=== PATIENT | male | born 1985 | race Caucasian/White ===

== ENCOUNTER → 2018-01-18 10:39 | Outpatient (CLI) | payer SELFPAY ==
[2018-01-18 13:36] LABS: Absolute Lymphocyte Count 1.93 X10^3/ul (0.83-4.51); Absolute Neutrophil Count 6.7 X10^3/uL (2.0-7.7); Basophil# 0.02 X10^3/uL; Basophil% 0.2 % (0-1); Eosinophil# 0.17 X10^3/uL; Eosinophils% 1.8 % (0-5); Hematocrit 42.6 % (40-54); Hemoglobin 13.9 g/dl (13.0-16.5); Lymphocyte # 1.93 X10^3/ul (4.0); Lymphocyte % 20.4 % (19-41); Mean Corp Hgb Conc 32.6 g/gl (32-36); Mean Corpuscular Volume 88.8 fL (80-94); Mean Platelet Vol. 11.2 fl (6.2-12.0); Monocyte# 0.59 X10^3/uL; Monocyte% 6.2 % (0-10); Neutrophil # 6.72 X10^3/uL (2.7-7.7); Neutrophil % 71.2 % (47-70); POSITIVE COUNT NO; POSITIVE DIFFERENTIAL NO; POSITIVE MORPHOLOGY NO; Platelet Count 261 K/mm3 (150-450); RBC Distribution Width CV 13.2 % (11.6-14.6); RBC Distribution Width SD 42.7 fl (35.1-43.9); White Blood Count 9.5 K/mm3 (4.4-11.0)
[2018-01-18 13:40] LABS: Partial Thromboplast Time 25.8 Seconds (24.1-36.2); Prothrombin Time (Protime)PT. 13.5 SECONDS (11.7-14.9)
[2018-01-18 13:47] LABS: ALB/GLOB Ratio 0.9 RATIO (0.9-2.4); AST(SGOT) 25 U/L (15-37); Alanine Aminotransfer ALT/SGPT 54 U/L (16-61); Albumin, Serum 3.8 g/dL (3.2-5.0); Alkaline Phosphatase 88 U/L (45-117); Anion Gap 8 (5-15); BUN 13 mg/dL (7-18); BUN/Creat Ratio 15.1 RATIO (10-20); Calcium,Total 8.3 mg/dL (8.5-10.1); Chloride 105 mmol/L (98-107); Creatinine, Serum 0.86 mg/dL (0.70-1.30); EST Glomerular Filtration Rate 108 mL/min (>60); Est Glom Filt Rate - Afr Amer 131 mL/min (>60); Globulin 4.1 g/dL (2.2-4.2); Glucose 209 mg/dL (74-106); Protein, Total 7.9 g/dL (6.4-8.2); Sodium Level 138 mmol/L (136-145)
== END ==
LOC: LABSPEC 12:42
PROVIDERS: Family Provider Nurse Practitioner; PCP Nurse Practitioner; Referring Provider Registered Nurse; Visit Provider Registered Nurse
DX: K92.1 Melena (principal)
CPT/HCPCS: 80053; 85025; 85610; 85730

== ENCOUNTER 2018-02-12 12:23 | Emergency (ER) | payer OTHER, SELFPAY ==
[2018-02-12 12:23] VITALS: BP 153/88; PULSE 87; RESP 16; TEMP 36.5; O2SAT 98; BMI 48.8
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
--- OUTSIDE RECORDS SUMMARY | 2018-03-27 06:32 | XMS RPT_ITS ---
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 COLONOSCOPY - DIAGNOSTIC [[id number]] Order #: [id number] [facility] MORENA PT ED DIGESTIVE DISEASES [] Order #: [id number]. #:[id number]: [id number] Prescriptions as of 01/24/2018 Sig: PEG 3350-ELECTROLYTES 236 GRA* Take 4,000 mL by mouth one ti* GLIMEPIRIDE 2 MG TABLET Take 1 tablet by mouth daily * METFORMIN ER 500 MG TABLET,EX* Take 2 tablets by mouth twice* CPAP Initiate Auto PAP @ 10- 20 cm * DULERA 100 MCG-5 MCG/ACTUATIO* Inhale 2 Puffs as instructed * ATORVASTATIN 80 MG TABLET Take 1 tablet by mouth daily * ALBUTEROL SULFATE HFA 90 MCG/* Inhale 2 Puffs as instructed * BLOOD-GLUCOSE METER KIT Glucose Meter of Choice - Kit* BLOOD SUGAR DIAGNOSTIC STRIPS Test blood sugar(s) 1- 2 times* LANCETS Test blood sugar(s) 1- 2 times* LISINOPRIL 5 MG TABLET Take 1 tablet by mouth once d* COMPOUNDED PRESCRIPTION Referral to [facility] for* Problem List As Of Date 01/24/2018 Noted Resolved Asthma [J45.909] INVALID FOR* More... Allergic rhinitis [J30.9] INVALID FOR* More... Environmental and seasonal allergies [J30.89] Obesity, Class III, BMI >= 40 (morbid obesity) *INVALID FOR* Diabetes mellitus, type II (HCC) [E11.9] Hyperlipidemia [E78.5] ARACELI (obstructive sleep apnea) [G47.33] More... Other instructions from your clinician: How to Prepare for Your Colonoscopy Using Golytely, Nulytely, Trilyte or Colyte Preparations with Conscious Sedation IMPORTANT - Read These Instructions at Least 2 Weeks Before your Colonoscopy Roy Instructions: ? Your bowel must be empty so that your doctor can clearly view your colon. Follow all of the instructions in this handout EXACTLY as they are written. If you do NOT follow the directions for when to start drinking the bowel preparation, your colonoscopy WILL be cancelled. ? Do NOT eat any solid food the ENTIRE day before your colonoscopy. ? Buy your bowel preparation at least 5 days before your colonoscopy. ? Do NOT mix the solution until the day before your colonoscopy. Designated Relay Tester Helper on the Day of Your Exam A responsible family member or friend MUST come with you to your colonoscopy and REMAIN in the endoscopy area until you are discharged. You are NOT ALLOWED to drive, take a taxi or bus, or leave the Endoscopy Center ALONE. If you do not have a responsible stud driver (family member or friend) with you to take you home, you exam cannot be done with sedation and will be cancelled. Medications Some of the medications you take may need to be stopped or adjusted before your colonoscopy. You MUST call the doctor who ordered any of the following medicines at least 2 weeks before your colonoscopy. ? Blood thinners - such as Coumadin (warfarin), Plavix (clopidogrel), Ticlid (ticlopidine hydrochloride), Agrylin (anagrelide), Xarelto (Rivaroxaban), Pradaxa (Dabigatran), Eliquis (Apixaban), and Effient (Prasugrel). ? Insulin or diabetes pills. Please call the doctor that monitors your glucose levels. Your insulin dosage may need to be adjusted due to the diet restrictions required with this bowel preparation. (Please bring your diabetes medicines with you on the day of your procedure.) If you take aspirin, take it and ALL other medications prescribed by your doctor. On the day of your colonoscopy, take your medications with a sip of water. Five (5) Days Before Your Colonoscopy ? Do NOT take medicines that stop diarrhea - such as Imodium, Kaopectate, or Pepto Bismol. ? Do NOT take fiber supplements - such as Metamucil, Citrucel, or Perdiem. ? Do NOT take products that contain iron - such as multi- vitamins (the label lists what is in the products). ? Do NOT take Vitamin E. Buy the prescription bowel preparation solution at your local pharmacy or drugstore pharmacy. Three (3) Days Before Your Colonoscopy ? Do NOT eat high-fiber foods - such as popcorn, beans, seeds (flax, sunflower, quinoa), multigrain bread, nuts, salad/vegetables, or fresh and dried fruit. One (1) Day Before Your Colonoscopy Only drink clear liquids the ENTIRE DAY before your colonoscopy. Do NOT eat any solid foods. Drink at least 8 ounces of clear liquids every hour after waking up. The clear liquids you can drink include: ? Water, apple, or white grape juice; broth; coffee or tea (without milk or creamer); clear carbonated beverages such as flori yordy or lemon-noorvik soda; Gatorade or other sports drinks (not red); Corbin- Aid or other flavored drinks (not red). You may eat plain jello or other gelatins (not red) or popsicles (not red). Do NOT drink alcohol on the day before or the day of the procedure. When to Mix and Drink Your Bowel Prep Follow the instructions on the label. After mixing, place the solution in the refrigerator for a couple of hours before drinking. You may add the flavor pack that came with the bowel preparation. Do NOT add ice, sugar or any flavorings to the solution. Morning Appointment (Before 12 noon) Step 1: ? Start drinking the bowel preparation at 6 PM the evening before your colonoscopy. Drink an 8-oz glass of bowel preparation every 10 minutes for a total of 8 glasses. ? You may continue to drink clear liquids until bedtime. Step 2: The day of the colonoscopy (4 hours before your exam). ? Drink an 8-oz glass of bowel preparation every 10 minutes for a total of 8 glasses. ? You may continue to drink clear liquids up to 2 hours before your exam. If you take aspirin, take it and ALL other prescribed medicines with a sip of water on the day of your colonoscopy. Afternoon Appointment (After 12 noon) ? Start drinking the bowel preparation at 6 AM the day of your colonoscopy. Drink an 8-oz glass of bowel preparation every 10 minutes. You must finish drinking the solution by 9 AM. ? You may continue to drink clear liquids up to 2 hours before your exam. If you take aspirin, take it and ALL other prescribed medicines with a sip of water on the day of your colonoscopy. Visit Notes: >> Adela Desai LPN Marcia Jan 24, 2018 3:25 PM Status: Signed REVIEW OF SYSTEMS: General: The patient denies fatigue, denies weight loss, denies weight gain, denies feeling hot, and denies feelings of cold. Eyes: The patient denies glaucoma, denies eye injury/surgery, wears glasses or contacts. Ear/Nose/Throat: The patient NOTES allergies, denies hayfever, denies ear infections, and denies bloody noses. Cardiovascular: The patient denies chest pain, denies heart disease, NOTES high blood pressure,denies cardiac stent, denies prior heart attack, denies irregular heart beat, NOTES high cholesterol, denies poor circulation, denies heart failure, other cardiac issues, denies claudication, denies cold feet, denies peripheral arterial stent. Respiratory: The patient denies tuberculosis, NOTES pneumonia, denies frequent cough, denies pulmonary embolism, denies shortness of breath, and denies coughing up blood. Gastrointestinal: The patient denies difficulty swallowing, denies acid reflux, denies ulcers, denies vomiting, denies jaundice/hepatitis, denies gallbladder problems, denies black or tarry stools, denies hemorrhoids, NOTES bleeding from rectum, denies diverticulitis, denies constipation, NOTES diarrhea, denies loss of stool control, and denies hernias. Kidney/Bladder: The patient denies kidney stones, denies urine infections, and denies bloody urine. Skin: The patient denies a history of skin cancer, denies bleeding/changing moles, and denies a history of skin rash. Neurologic: The patient denies a history of epilepsy/convulsions, denies headaches, denies head/spinal injuries, and denies stroke/TIA. Psychiatric: The patient denies psychiatric medications, denies depression, and denies voices, denies substance abuse. Endocrine: The patient denies thyroid disorders, NOTES diabetes, and denies hormonal problems. Hematologic: The patient denies a history of bruising, denies bleeding, and denies anemia, denies blood clots. Infections: The patient denies a history of measles and mumps, denies rheumatic fever, and denies sexually transmitted diseases. Musculoskeletal: The patient denies back pain/injury, denies back problems, denies sciatica, denies knee/foot trouble, denies arthritis, or denies gout. When was patient's last Mammogram screening? N/A Last Colonoscopy: None Adela Desai LPN Prescriptions ordered this encounter Disp Refills Start End PEG 3350-ELECTROLYTES 236 GRAM-22.74* 1 Jimmy* 0 01/24/2018 01/24/2018 Route: ORAL Sig: Take 4,000 mL by mouth one time only for 1 dose. Refer to printed prep instructions from your doctor. Letter Text Encounter Status:Closed by MD KARIME CHAWLA on 01/27/18 CNCO Observed: 01/24/2018 Status: COMPLETED Source: [place] 12:00 AM [facility] REPOSITORY Letter Text Department of General Surgery Dr Karime Chawla [address] [place] [phone] 01/24/2018 TO WHOM IT MAY CONCERN: This is to confirm that Guera Fragoso had an appointment and was seen at the [facility] in the Department of General Surgery by Dr Karime Chawla on 01/24/2018. Patient is to have a procedure on 02-06-2017 and may return to work on the next operating day. Sincerely yours, Dr Karime Chawla CBC AND DIFFERENTIAL Collected: 01/18/2018 Status: F Source: [place] 11:05 AM [facility] REPOSITORY TYPE CODE TESTS RESULT OUT OF REFERENCE UNITS RANGE LAB WBC 3.70-11.00 k/uL Test WBC sent to [facility]. Result Comment: Account Credited HIDE LAB RBC 4.20-6.00 m/uL Test sent RBC to [facility]. Result Comment: Account Credited HIDE LAB HGB 13.0-17.0 g/dL Hemoglobin Test sent to [facility]. Result Comment: Account Credited HIDE LAB HCT 39.0-51.0 % Hematocrit Test sent to [facility]. Result Comment: Account Credited HIDE LAB MCV 80.0-100.0 fL Test sent MCV to [facility]. Result Comment: Account Credited HIDE LAB MCH 26.0-34.0 pG Test sent MCH to [facility]. Result Comment: Account Credited HIDE LAB MCHC 30.5-36.0 g/dL Test MCHC sent to [facility]. Result Comment: Account Credited HIDE LAB RDWCV 11.5-15.0 % Test RDW-CV sent to [facility]. Result Comment: Account Credited HIDE LAB PLTCT 150-400 k/uL Test Platelet Count sent to [facility]. Result Comment: Account Credited HIDE LAB MPV 9.0-12.7 fL Test sent MPV to [facility]. Result Comment: Account Credited HIDE LAB SANDIE Recheck Test sent to [facility]. Result Comment: Account Credited HIDE LAB [facility]EUT [facility] Result Comment: Account Credited HIDE LAB AANEUT 1.45-7.50 k/uL Test Abs sent to [facility]. Result Comment: Account Credited HIDE LAB ALYMP % Test sent to Lymph% [facility]. Result Comment: Account Credited HIDE LAB AALYMP 1.00-4.00 k/uL Test Abs Lymph sent to [facility]. Result Comment: Account Credited HIDE LAB AMONO % Test sent to Slope% [facility]. Result Comment: Account Credited HIDE LAB AAMONO <0.87 k/uL Test sent Abs Slope to [facility]. Result Comment: Account Credited HIDE LAB AEOS % Test sent to Eosin% [facility]. Result Comment: Account Credited HIDE LAB AAEOS <0.46 k/uL Test sent Abs Eosin to [facility]. Result Comment: Account Credited HIDE LAB ABASO % Test sent to Baso% [facility]. Result Comment: Account Credited HIDE LAB AABASO <0.11 k/uL Test sent Abs Baso to [facility]. Result Comment: Account Credited HIDE LAB REVW Test sent to Review [facility]. Result Comment: Account Credited HIDE LAB CBCCOM Comment Test sent to [facility]. Result Comment: Account Credited KYMBERLYE COMP METABOLIC PANEL Collected: 01/18/2018 Status: F Source: [place] 11:05 AM [facility] RE[facility] TYPE CODE TESTS RESULT OUT OF REFERENCE UNITS RANGE LAB TP 6.3-8.0 g/dL Test sent to [facility]. Result Comment: Account Credited HIDE LAB ALB 3.9-4.9 g/dL Test Albumin sent to [facility]. Result Comment: Account Credited HIDE LAB CA 8.5-10.2 mg/dL Test Calcium, Total sent to [facility]. Result Comment: Account Credited HIDE LAB TBIL 0.2-1.3 mg/dL Bilirubin, Test Total sent to [facility]. Result Comment: Account Credited HIDE LAB ALKP 38-113 U/L Alkaline Test Phosphatase sent to [facility]. Result Comment: Account Credited HIDE LAB AST 14-40 U/L Test sent AST to [facility]. Result Comment: Account Credited HIDE LAB GLU 74-99 mg/dL Test sent Glucose to [facility]. Result Comment: Account Credited HIDE LAB BUN 9-24 mg/dL Test sent BUN to [facility]. Result Comment: Account Credited HIDE LAB CRET 0.73-1.22 mg/dL Creatinine Test sent to [facility]. Result Comment: Account Credited HIDE LAB NA 136-144 mmol/L Test Sodium sent to [facility]. Result Comment: Account Credited HIDE LAB K 3.7-5.1 mmol/L Test Potassium sent to [facility]. Result Comment: Account Credited HIDE LAB CL 97-105 mmol/L Test Chloride sent to [facility]. Result Comment: Account Credited HIDE LAB CO2 22-30 mmol/L Test sent CO2 to [facility]. Result Comment: Account Credited HIDE LAB AGAP 9-18 mmol/L Test sent Anion Gap to [facility]. Result Comment: Account Credited HIDE LAB ALT 10-54 U/L Test sent ALT to [facility]. Result Comment: Account Credited HIDE LAB GFRAA eGFR- Amer. Test sent to [facility]. Result Comment: Account Credited HIDE LAB GFRNAA . eGFR-All Test sent Other Races to [facility]. Result Comment: Account Credited HIDE LAB GFRPED eGFR-Ped. Test sent Factor to [facility]. Result Comment: Account Credited HIDE PROTIME Collected: 01/18/2018 Status: F Source: [place] 11:05 AM [facility] REPOSITORY TYPE CODE TESTS RESULT OUT OF REFERENCE UNITS RANGE LAB PSEC 9.7-13.0 sec Test PT sent to [facility]. Result Comment: Account Credited HIDE LAB INR 0.9-1.3 Test sent to PT INR [facility]. Result Comment: Account Credited HIDE APTT Collected: 01/18/2018 Status: F Source: [place] 11:05 AM [facility] REPOSITORY TYPE CODE TESTS RESULT OUT OF REFERENCE UNITS RANGE LAB APTT 23.0-32.4 sec Test APTT sent to [facility]. Result Comment: Account Credited HIDE HEMOGLOBIN A1C Collected: 01/18/2018 Status: F Source: [place] 11:05 [facility] REPOSITORY TYPE CODE TESTS RESULT OUT OF REFERENCE UNITS RANGE LAB HGBA1C 4.3-5.6 % High Hemoglobin A1c 10.7 LAB HBA0 mg/dL Est. Average Glucose 260 Result Comment: eAG: (Estimated average glucose) is a calculated value from HgbA1c and is service representative of the average blood glucose level in the last 2-3 month period. Performed By: #### HBA1C #### [facility] [address] [place] [address] PROTHROMBIN TIME W/INR Collected: 01/18/2018 Status: F Source: [place] 9:30 AM [facility] REPOSITORY TYPE CODE TESTS RESULT OUT OF RANGE REFERENCE UNITS LAB L300.4150 11.7-14.9 SECONDS Normal PROTIME 13.5 LAB L300.4200 Normal INR 1.0 Performed By: #### L300.3900, L300.4310 #### [facility] [address] [place], [address] PARTIAL THROMBOPLAST Collected: 01/18/2018 Status: F Source: [place] TIME 9:30 AM [facility] REPOSITORY TYPE CODE TESTS RESULT OUT OF RANGE REFERENCE UNITS LAB L300.4310 24.1-36.2 Seconds Normal PTT 25.8 Performed By: #### L300.3900, L300.4310 #### [facility] [address] [place], [address] PROGRESS Observed: 01/18/2018 Status: COMPLETED Source: [place] 8:59 AM [facility] REPOSITORY HNO ID: [id number] Author: Rachel Lai) Patsy Service: (none) Author Type: Nurse Practitioner Type: Progress Notes Filed: 01/18/2018 1:49 PM Note Text: This is a 32 year old male who presents today with: Patient presents with: Rectal Problem HISTORY OF PRESENT ILLNESS: Guera Fragoso is a 32 year old male. Patient presents with: Rectal Problem Pt presents today with complaint of rectal bleeding. Yesterday he was having a lot of blood in stool. He had two stools and both times, notices a lot of blood in the toilet. With the 3rd stool, blood was just with wiping. Refers that he went to urgent care last night, and was advised to follow up with gen surg today, but was unable to get in. No stooling yet today to eval. He brought a picture in of the blood in the toilet. No hx of blood in the stool. Only notes bleeding with stooling. No pain. Stool was more diarrhea-like in nature. Refers that since metformin increased, stool has been looser. Refers that he also recently started on amaryl. Sometimes will feel like stomach is rolling, but that is normal for him with the metformin. No ASA. No NSAIDs. No blood thinners. No problems with constipation. Refers sometimes would go 2-3 days without, but then back to normal. Refers not having to strain. No hemorrhoids that he is aware of. No hx of melena. No heartburn/indigestion/vomiting. No fever/chills. No chest pain/palpitations. No dizziness/lightheadedness. Hx of asthma, but nothing out of the ordinary with breathing. No trouble urinating. No hx of colonoscopy. No known family hx of colon CA. PAST MEDICAL HISTORY: PAST MEDICAL HISTORY Diagnosis Date - Allergic rhinitis - Asthma - Diabetes mellitus, type II (HCC) - Environmental and seasonal allergies - Hyperlipidemia - Morbid obesity (HCC) - ARACELI (obstructive sleep apnea) Severe PAST SURGICAL HISTORY Procedure Laterality Date - NONE ALLERGIES Amoxicillin; Asa [Aspirin]; Ceclor [Cefaclor] MEDICATIONS Current Outpatient Prescriptions: glimepiride (AMARYL) 2 mg tablet Take 1 tablet by mouth daily with breakfast. metFORMIN ER (GLUCOPHAGE XR) 500 mg 24 hr tablet Take 2 tablets by mouth twice daily before meals. CPAP Initiate Auto PAP @ 10-20 cm of water with humidification. Mask (per patient preference) optional chin strap (if indicated) , filters, tubing, humidifier and lifetime supplies. DULERA 100-5 mcg/actuation inhaler Inhale 2 Puffs as instructed twice daily. atorvastatin (LIPITOR) 80 mg tablet Take 1 tablet by mouth daily at bedtime. For cholesterol. albuterol HFA (PROVENTIL HFA, VENTOLIN HFA) 90 mcg/actuation inhaler Inhale 2 Puffs as instructed every 6 hours as needed for Wheezing/Shortness of Breath. Blood-Glucose Meter monitoring kit Glucose Meter of Choice - Kit - Dx: Type 2 DM - Uncontrolled E11.65 blood sugar diagnostic (BLOOD GLUCOSE TEST) test strip Test blood sugar(s) 1-2 times daily. Dx: Type 2 DM - Uncontrolled E11.65 Insulin: No Lancets lancets Test blood sugar(s) 1-2 times daily. Dx: Type 2 DM - Uncontrolled E11.65 Insulin: No lisinopril (ZESTRIL, PRINIVIL) 5 mg tablet Take 1 tablet by mouth once daily. COMPOUNDED PRESCRIPTION Referral to [facility] for custom shoe orthotic assessmentPhone number [phone] code: E11.9 No current facility-administered medications for this visit. FAMILY HISTORY Problem Relation Age of Onset - Asthma Father - Diabetes Father - Hypertension Mother - Thyroid Mother - Hyperlipidemia Mother - other (migraines) Sister - Hypertension Brother - Hyperlipidemia Brother - Diabetes Paternal Grandmother - Alzheimer's Disease Paternal Grandmother - other (heart disease) Paternal Grandmother - other (cva stroke) Maternal Uncle - other (cva stroke) Maternal Aunt Social History Marital status: Single Spouse name: Years of education: Number of children: Social History Main Topics Smoking status: Never Smoker Smokeless tobacco: Former User Types: Chew Comment: use of cigarettes and chew for a week at age 16 Alcohol use: Yes Comment: rare Drug use: No Sexual activity: Yes Partners with: Female Comment: No use of protection Other Topics Concern Caffeine Concern Yes Comment:2-3 pops Social History Narrative Lives with girlfriend. Feels safe at home. EXAM: BP 130/92 (BP Site: Left Arm, BP Position: Sitting, BP Cuff Size: Regular Adult) Pulse 72 Temp 37.1 ?C (98.8 ?F) (Left Tympanic) Resp 14 Wt (!) 157.4 kg (347 lb) BMI 47.05 kg/m? PHYSICAL EXAM: General Appearance: Well appearing, alert, in no acute distress, well-hydrated, well nourished.. Skin: Skin color, texture, turgor normal, no suspicious rashes or lesions. Head: Normocephalic, no masses, lesions, tenderness or abnormalities. Eyes: Anicteric sclera. Extraocular movements are intact. . Neck: Supple, no adenopathy Lungs: Lungs clear to auscultation. No wheezing, rhonchi, rales. Heart: RRR without murmur, gallop, or rubs. No ectopy. Abdomen: Abdomen obese, soft, non-tender. Bowel sounds normal. No masses, organomegaly. Neurologic: Gait normal. Reflexes normal and symmetric. Sensation grossly intact.. Rectal: Normal exam. Minimal stool. Heme +. ASSESSMENT/PLAN: 1. Hematochezia - ICD9: 578.1, ICD10: K92.1 (primary diagnosis) Pt currently stable. Asymptomatic. Will get labs to ensure stable. Will get stat so results are back before the weekend. Will place Gen Surg referral. Likely will need scope. Discussed redflag symptoms with patient and when to present to ER. Voices understanding. - CBC + DIFF - COMP METABOLIC PANEL - ACTIVATED PTT - PROTHROMBIN TIME/PT - CONSULT TO GENERAL SURGERY - HEMOCCULT SINGLE B/O 2. Rectal bleeding - ICD9: 569.3, ICD10: K62.5 - CBC + DIFF - COMP METABOLIC PANEL - ACTIVATED PTT - PROTHROMBIN TIME/PT - CONSULT TO GENERAL SURGERY - HEMOCCULT SINGLE B/O Discussed treatment plan and patient voices understanding. Patient's questions answered appropriately. Medications and potential side effects were discussed and patient voices understanding. Return to the office as scheduled or as needed for worsening/no improvement. Rachel Garner APRN.CNP CNOV Observed: 01/18/2018 Status: COMPLETED Source: [place] 8:40 AM [facility] REPOSITORY Office Visit (FAMPWS) GUERA FRAGOSO ([id number]) 1985 M Date Time Provider Department 01/18/18 8:40 AM [facility] During [facility] visit today, we recorded the following information about you: Temperature Pulse Respiration Blood pressure 98.8 degrees 72/minute 14/minute 130/92 Weight 157.4 kg Rachel Garner APRN.CNP 01/18/2018 1:49 PM Signed This is a 32 year old male who presents today with: Patient presents with: Rectal Problem HISTORY OF PRESENT ILLNESS: Guera Fragoso is a 32 year old male. Patient presents with: Rectal Problem Pt presents today with complaint of rectal bleeding. Yesterday he was having a lot of blood in stool. He had two stools and both times, notices a lot of blood in the toilet. With the 3rd stool, blood was just with wiping. Refers that he went to urgent care last night, and was advised to follow up with gen surg today, but was unable to get in. No stooling yet today to eval. He brought a picture in of the blood in the toilet. No hx of blood in the stool. Only notes bleeding with stooling. No pain. Stool was more diarrhea-like in nature. Refers that since metformin increased, stool has been looser. Refers that he also recently started on amaryl. Sometimes will feel like stomach is rolling, but that is normal for him with the metformin. No ASA. No NSAIDs. No blood thinners. No problems with constipation. Refers sometimes would go 2-3 days without, but then back to normal. Refers not having to strain. No hemorrhoids that he is aware of. No hx of melena. No heartburn/indigestion/vomiting. No fever/chills. No chest pain/palpitations. No dizziness/lightheadedness. Hx of asthma, but nothing out of the ordinary with breathing. No trouble urinating. No hx of colonoscopy. No known family hx of colon CA. PAST MEDICAL HISTORY: PAST MEDICAL HISTORY Diagnosis Date - Allergic rhinitis - Asthma - Diabetes mellitus, type II (HCC) - Environmental and seasonal allergies - Hyperlipidemia - Morbid obesity (HCC) - ARACELI (obstructive sleep apnea) Severe PAST SURGICAL HISTORY Procedure Laterality Date - NONE ALLERGIES Amoxicillin; Asa [Aspirin]; Ceclor [Cefaclor] MEDICATIONS Current Outpatient Prescriptions: glimepiride (AMARYL) 2 mg tablet Take 1 tablet by mouth daily with breakfast. metFORMIN ER (GLUCOPHAGE XR) 500 mg 24 hr tablet Take 2 tablets by mouth twice daily before meals. CPAP Initiate Auto PAP @ 10-20 cm of water with humidification. Mask (per patient preference) optional chin strap (if indicated) , filters, tubing, humidifier and lifetime supplies. DULERA 100-5 mcg/actuation inhaler Inhale 2 Puffs as instructed twice daily. atorvastatin (LIPITOR) 80 mg tablet Take 1 tablet by mouth daily at bedtime. For cholesterol. albuterol HFA (PROVENTIL HFA, VENTOLIN HFA) 90 mcg/actuation inhaler Inhale 2 Puffs as instructed every 6 hours as needed for Wheezing/Shortness of Breath. Blood-Glucose Meter monitoring kit Glucose Meter of Choice - Kit - Dx: Type 2 DM - Uncontrolled E11.65 blood sugar diagnostic (BLOOD GLUCOSE TEST) test strip Test blood sugar(s) 1-2 times daily. Dx: Type 2 DM - Uncontrolled E11.65 Insulin: No Lancets lancets Test blood sugar(s) 1-2 times daily. Dx: Type 2 DM - Uncontrolled E11.65 Insulin: No lisinopril (ZESTRIL, PRINIVIL) 5 mg tablet Take 1 tablet by mouth once daily. COMPOUNDED PRESCRIPTION [facility] orth[facility] assessmentPhone number [phone] code: E11.9 No current facility-administered medications for this visit. FAMILY HISTORY Problem Relation Age of Onset - Asthma Father - Diabetes Father - Hypertension Mother - Thyroid Mother - Hyperlipidemia Mother - other (migraines) Sister - Hypertension Brother - Hyperlipidemia Brother - Diabetes Paternal Grandmother - Alzheimer's Disease Paternal Grandmother - other (heart disease) Paternal Grandmother - other (cva stroke) Maternal Uncle - other (cva stroke) Maternal Aunt Social History Marital status: Single Spouse name: Years of education: Number of children: Social History Main Topics Smoking status: Never Smoker Smokeless tobacco: Former User Types: Chew Comment: use of cigarettes and chew for a week at age 16 Alcohol use: Yes Comment: rare Drug use: No Sexual activity: Yes Partners with: Female Comment: No use of protection Other Topics Concern Caffeine Concern Yes Comment:2-3 pops Social History Narrative Lives with girlfriend. Feels safe at home. EXAM: BP 130/92 (BP Site: Left Arm, BP Position: Sitting, BP Cuff Size: Regular Adult) Pulse 72 Temp 37.1 ?C (98.8 ?F) (Left Tympanic) Resp 14 Wt (!) 157.4 kg (347 lb) BMI 47.05 kg/m? PHYSICAL EXAM: General Appearance: Well appearing, alert, in no acute distress, well-hydrated, well nourished.. Skin: Skin color, texture, turgor normal, no suspicious rashes or lesions. Head: Normocephalic, no masses, lesions, tenderness or abnormalities. Eyes: Anicteric sclera. Extraocular movements are intact. . Neck: Supple, no adenopathy Lungs: Lungs clear to auscultation. No wheezing, rhonchi, rales. Heart: RRR without murmur, gallop, or rubs. No ectopy. Abdomen: Abdomen obese, soft, non-tender. Bowel sounds normal. No masses, organomegaly. Neurologic: Gait normal. Reflexes normal and symmetric. Sensation grossly intact.. Rectal: Normal exam. Minimal stool. Heme +. ASSESSMENT/PLAN: 1. Hematochezia - ICD9: 578.1, ICD10: K92.1 (primary diagnosis) Pt currently stable. Asymptomatic. Will get labs to ensure stable. Will get stat so results are back before the weekend. Will place Gen Surg referral. Likely will need scope. Discussed redflag symptoms with patient and when to present to ER. Voices understanding. - CBC + DIFF - COMP METABOLIC PANEL - ACTIVATED PTT - PROTHROMBIN TIME/PT - CONSULT TO GENERAL SURGERY - HEMOCCULT SINGLE B/O 2. Rectal bleeding - ICD9: 569.3, ICD10: K62.5 - CBC + DIFF - COMP METABOLIC PANEL - ACTIVATED PTT - PROTHROMBIN TIME/PT - CONSULT TO GENERAL SURGERY - HEMOCCULT SINGLE B/O Discussed treatment plan and patient voices understanding. Patient's questions answered appropriately. Medications and potential side effects were discussed and patient voices understanding. Return to the office as scheduled or as needed for worsening/no improvement. FARAZ Galdamez APRN.CNP 01/18/2018 9:34 AM Signed 1. Labs today. 2. Schedule with gen surg. 3. If anything worsens (more bleeding, pain, fever/chills, dizziness, etc) to the ER. Referring Provider: SELF [[id number]] Allergies As of Date: 01/18/2018 Noted Allergy Reaction AMOXICILLIN 2016 7 - Swelling Comments: Swelling of the tongue ASA (ASPIRIN) 04/27/2014 14 - Other: See Comments Comments: Triggers asthma CECLOR (CEFACLOR) 04/27/2014 4 - Hives Date Reviewed: 01/18/2018 Reviewed by: Maria Antonia Patricia Systems Integration Engineer - Fully Assessed Reason for Visit: Rectal Problem [93] Primary Visit Diagnosis:Hematochezia [K92.1] Other Visit Diagnosis:Rectal bleeding [K62.5] Order(s):CBC + DIFF [SQCBCDIF] Order #: [id number] FUTURE COMP METABOLIC PANEL [SQCMP] Order #: [id number] FUTURE ACTIVATED PTT [SQPTT] Order #: [id number] FUTURE PROTHROMBIN TIME/PT [SQPT] Order #: [id number] FUTURE CONSULT TO GENERAL SURGERY [9011] Order #: [id number]: 1 HEMOCCULT SINGLE B/O [6012576] Order #: [id number] Prescriptions as of 01/18/2018 Sig: GLIMEPIRIDE 2 MG TABLET Take 1 tablet by mouth daily * METFORMIN ER 500 MG TABLET,EX* Take 2 tablets by mouth twice* CPAP Initiate Auto PAP @ 10- 20 cm * DULERA 100 MCG-5 MCG/ACTUATIO* Inhale 2 Puffs as instructed * ATORVASTATIN 80 MG TABLET Take 1 tablet by mouth daily * ALBUTEROL SULFATE HFA 90 MCG/* Inhale 2 Puffs as instructed * BLOOD-GLUCOSE METER KIT Glucose Meter of Choice - Kit* BLOOD SUGAR DIAGNOSTIC STRIPS Test blood sugar(s) 1- 2 times* LANCETS Test blood sugar(s) 1- 2 times* LISINOPRIL 5 MG TABLET Take 1 tablet by mouth once d* COMPOUNDED PRESCRIPTION Referral to [facility] for* Problem List As Of Date 01/18/2018 Noted Resolved Asthma [J45.909] INVALID FOR* More... Allergic rhinitis [J30.9] INVALID FOR* More... Environmental and seasonal allergies [J30.89] Obesity, Class III, BMI >= 40 (morbid obesity) *INVALID FOR* Diabetes mellitus, type II (HCC) [E11.9] Hyperlipidemia [E78.5] ARACELI (obstructive sleep apnea) [G47.33] More... Other instructions from your clinician: 1. Labs today. 2. Schedule with gen surg. 3. If anything worsens (more bleeding, pain, fever/chills, dizziness, etc) to the ER. Letter Text Rachel Garner CNP [address], [place] [address] 01/18/2018 TO WHOM IT MAY CONCERN: This is to confirm that Guera Fragoso had an appointment and was seen at the [facility] in the Department of Family Medicine by Rachel Garner CNPon 01/18/2018 and may return to work on 01/18/18 after the medical appointment. . Sincerely yours, Rachel Garner CNP Encounter Status:Closed by RACHEL GARNER CNP on 01/18/18 CBC W/DIFF, AUTOMATED Collected: 01/18/2018 Status: F Source: [place] 12:00 AM [facility] [place] REPOSITORY TYPE CODE TESTS RESULT OUT OF RANGE REFERENCE UNITS LAB L100.1000 4.4-11.0 K/mm3 Normal WBC 9.5 LAB L100.1200 4.6-6.2 M/mm3 Normal RBC 4.80 LAB L100.1300 13.0-16.5 g/dl Normal HGB 13.9 LAB L100.1400 40-54 % Normal HCT 42.6 LAB L100.1500 80-94 fL Normal MCV 88.8 LAB L100.1600 27.0-32.0 pg Normal MCH 29.0 LAB L100.1700 32-36 g/gl Normal MCHC 32.6 LAB L100.1810 11.6-14.6 % Normal RDW CV 13.2 LAB L100.1820 35.1-43.9 fl Normal RDW SD 42.7 LAB L100.1900 150-450 K/mm3 Normal PLT 261 LAB L100.2000 6.2-12.0 fl Normal MPV 11.2 LAB L100.2100 47-70 % High NEUT% 71.2 LAB L100.2200 19-41 % Normal LY% 20.4 LAB L100.2300 0-10 % Normal MONO% 6.2 LAB L100.2400 0-5 % Normal EO% 1.8 LAB L100.2500 0-1 % Normal BASO% 0.2 LAB L100.2550 0.0-0.9 % Normal IM GRAN % 0.200 Result Comment: IG% - Immature Granulocytes (promyelocytes, myelocytes and metamyelocytes) > 1% indicates that a LEFT SHIFT is Present. LAB L100.2620 2.0-7.7 X10 3/uL Normal Absolute Neut 6.7 LAB L100.2720 0.83-4.51 X10 3/ul Normal Absolute Lymph 1.93 Performed By: #### L100.0100 #### [facility] [address] [place], [address] COMPREHENSIVE METABOLIC Collected: 01/18/2018 Status: F Source: [facility] 12:00 AM [facility] [place] REPOSITORY TYPE CODE TESTS RESULT OUT OF RANGE REFERENCE UNITS LAB L501.0100 74-106 mg/dL High GLU 209 Result Comment: Glucose result greater than or equal to 200 mg/dL suggests DIABETES MELLITUS per A.D.A. criteria. Please note revised GLUCOSE reference range effective 2017. LAB L501.1000 7-18 mg/dL Normal BUN 13 LAB L501.1100 0.70-1.30 mg/dL Normal CREAT,SERUM 0.86 Result Comment: The validity of the calculated GFR AND GFRAA in patients over 70 years has not been determined. Clinical correlation is essential. LAB L501.1110 >60 mL/min Normal EST GFR 108 Result Comment: Non- GFR Calc LAB L501.1115 >60 mL/min Normal EST GFR - AA 131 Result Comment: GFR Calc LAB L501.1300 10-20 RATIO Normal BUN/CRE 15.1 LAB L501.1500 6.4-8.2 g/dL T Normal PROT 7.9 LAB L501.1800 3.2-5.0 g/dL Normal ALB 3.8 LAB L501.1950 2.2-4.2 g/dL Normal GLOB 4.1 LAB L501.2000 0.9-2.4 RATIO Normal A/G 0.9 LAB L501.2200 8.5-10.1 mg/dL Low CA 8.3 LAB L501.4100 15-37 U/L Normal AST 25 LAB L501.4305 45-117 U/L Normal ALK P 88 LAB L501.4405 16-61 U/L Normal ALT 54 LAB L501.4600 0.20-1.00 mg/dL T Normal BILI 0.30 LAB L501.5300 136-145 mmol/L NA Normal 138 LAB L501.5600 3.5-5.1 mmol/L K Normal 4.0 LAB L501.5900 98-107 mmol/L CL Normal 105 LAB L501.6100 21.0-32.0 mmol/L Normal CO2 25.0 LAB L501.6200 5-15 Normal GAP 8 Performed By: #### L500.4050 #### [facility] [address] [place] [address]. [place], [place], [id number] COMP METABOLIC PANEL Collected: 01/05/2018 Status: F Source: [place] 8:47 AM [facility] REPOSITORY TYPE CODE TESTS RESULT OUT OF REFERENCE UNITS RANGE LAB TP 6.3-8.0 g/dL Protein, Total 7.6 LAB ALB 3.9-4.9 g/dL Albumin 4.5 LAB CA 8.5-10.2 mg/dL Calcium, Total 9.4 LAB TBIL 0.2-1.3 mg/dL Bilirubin, Total 0.2 LAB ALKP 38-113 U/L Alkaline Phosphatase 69 LAB AST 14-40 U/L AST 20 LAB GLU 74-99 mg/dL Glucose High 391 Result Comment: The [place] Diabetes Association (ADA) provides guidance for cutoff values for fasting glucose and random glucose. The ADA defines fasting as no caloric intake for at least 8 hours. Fas ting plasma glucose results between 100 to 125 mg/dL indicate increased risk for diabetes (prediabetes). Fasting plasma glucose results greater than or equal to 126 mg/dL meet the criteria for diagnosis of diabetes. In the absence of unequivocal hyperglycemia, results should be confirmed by repeat testing. In a patient with classic symptoms of hyperglycemia or hyperglycemic crisis, random plasma glucose results greater than or equal to 200 mg/dL meet the criteria for diagnosis of diabetes. Reference: Standards of Medical Care in Diabetes 2016, [place] [employer] Association. Diabetes Care. 2016.39(Suppl 1). LAB BUN 9-24 mg/dL BUN 15 LAB CRET 0.73-1.22 mg/dL Creatinine 0.77 LAB NA 136-144 mmol/L Sodium Low 135 LAB K 3.7-5.1 mmol/L Potassium 4.5 LAB CL 97-105 mmol/L Chloride 97 LAB CO2 22-30 mmol/L CO2 Low 21 LAB AGAP 9-18 mmol/L Anion Gap 17 LAB ALT 10-54 U/L ALT 39 LAB GFRAA eGFR- Amer. >60 LAB GFRNAA . eGFR-All Other Races >60 Result Comment: eGFR (Estimated GFR) Units of measure: mL/min/1.73 meters squared eGFR is derived from the reexpressed MDRD Study equation using the following parameters: serum creatinine, age, gender and race. The creatinine assay has been calibrated to be traceable to IDMS. An eGFR <60 mL/min/1.73m2 for >3 months is consistent with chronic kidney disease. Refer to KDOQI guidelines for clinical interpretation. In patients with unstable renal function, e.g. those with acute kidney injury, the eGFR may not accurately reflect actual GFR. Performed By: #### CMP, LIPB, HBA1C #### [facility] [address] [place] [address] LIPID PANEL, BASIC Collected: 01/05/2018 Status: F Source: [place] 8:47 AM [facility] REPOSITORY TYPE CODE TESTS RESULT OUT OF REFERENCE UNITS RANGE LAB CHOL <200 mg/dL Cholesterol 128 Result Comment: <200 mg/dL, Desirable 200-239 mg/dL, Borderline high >239 mg/dL, High LAB TRIGLY <150 mg/dL Triglyceride High 246 Result Comment: <150 mg/dL, Normal 150-199 mg/dL, Borderline high 200-499 mg/dL, High >499 mg/dL, Very high LAB HDL >39 mg/dL HDL-Cholesterol Low 28 Result Comment: 40-59 mg/dL, Acceptable >59 mg/dL, High: Negative risk factor for coronary heart disease <40 mg/dL, Low: Positive risk factor for coronary heart disease LAB LDL <100 mg/dL LDL-Cholesterol 51 Result Comment: <100 mg/dL, Optimal 100-129 mg/dL, Near optimal/above optimal 130-159 mg/dL, Borderline high 160-189 mg/dL, High >189 mg/dL, Very high Secondary prevention optimal LDL Cholesterol levels are recommended to be < 70 mg/dL LAB NONHDL <130 mg/dL Non HDL Cholesterol 100 Result Comment: <130 mg/dL, Optimal 130-159 mg/dL, Near optimal/above optimal 160-189 mg/dL, Borderline high 190-219 mg/dL, High >219 mg/dL, Very high Secondary prevention optimal non HDL Cholesterol levels are recommended to be < 100 mg/dL LAB FT hrs Fasting Time 10 LAB VLDL <30 mg/dL High VLDL Cholesterol 49 LAB TCHDL <5.10 TC:HDL Ratio 4.57 LAB LDLHDL <2.54 LDL:HDL Ratio 1.82 Result Comment: Reference: 1. National Cholesterol Education Program ATP III Guideline At-A-Glance Quick Desk Reference: National Heart, Lung, and Blood [place]. National Institutes of Health. 2001: NIH Publication No. 01-3305. 2. An International Atherosclerosis Society position paper: global recommendations for the management of dyslipidemia: executive summary, Atherosclerosis. 2014: 232(2):410-413. Performed By: #### CMP, LIPB, HBA1C #### [facility] [address] [place], [place] [address] HEMOGLOBIN A1C Collected: 01/05/2018 Status: F Source: [place] 8:47 AM [facility] REPOSITORY TYPE CODE TESTS RESULT OUT OF REFERENCE UNITS RANGE LAB HGBA1C 4.3-5.6 % High Hemoglobin A1c 10.6 LAB HBA0 mg/dL Est. Average Glucose 258 Result Comment: eAG: (Estimated average glucose) is a calculated value from HgbA1c and is service representative of the average blood glucose level in the last 2-3 month period. Performed By: #### CMP, LIPB, HBA1C #### [facility] [address] [place] [id number] DELANEY Observed: 01/01/2018 Status: COMPLETED Source: [place] 7:00 PM [facility] REPOSITORY Office Visit (FAMPWS) GUERA FRAGOSO ([id number]) 1985 M Date Time Provider Department 01/01/18 7:00 PM MARLA NAJERA) FAMPWS During your visit today, we recorded the following information about you: Pulse Respiration Blood pressure Weight 80/minute 12/minute 126/74 161.5 kg Marla Najera MD 01/02/2018 7:55 AM Signed Chief Complaint Patient presents with: F/U 3 Month: DM, asthma, weight HPI Guera Fragoso is a 32 year old male who presents here today for 3 month diabetes follow up. DIABETES MELLITUS: Mr. Fragoso was last seen 3 months ago. Started on metformin XR at last OV due to blurred vision with Metformin. Since our last visit he denies excessive thirst or increased frequency of urination, numbness, tingling or pain in extremities and low sugar/hypoglycemic reactions. Admits to blurred vision episode last week with sugars in the 300-400 range. Had urinary frequency with hyperglycemia, but this has resolved with readings in the upper 100's this week. Follows a diabetic diet some of the time. He is compliant with medication(s) and is tolerating med(s) without any side effects. He reports checking his glucose on a once a day schedule with sugars in the 150-180 range. Patient's last HgA1C was Hemoglobin A1C (%) Date Value 09/29/2017 7.1 03/22/2017 7.4 Hemoglobin A1C (POCT) (%) Date Value 01/01/2018 11.1 ) Last Ophthalmology exam was within the past 12 months Last Podiatry exam was within the past 12 months Asthma: has been using Dulera BID as recommended and has noticed with weather change that he has been getting more wheezing. For the last week has been using his albuterol 3-4 times per day. Has this with season change and when weather stabilizes his symptoms. Was using albuterol not even weekly before weather change. ARACELI: Using CPAP nightly. Mask occasionally leaking and making it hard for him to sleep. Denies daytime somnolence. Refusing immunizations today. Past medical history, appointments, medications, allergies reviewed. Previous Medical History PAST MEDICAL HISTORY Diagnosis Date - Allergic rhinitis - Asthma - Diabetes mellitus, type II (HCC) - Environmental and seasonal allergies - Hyperlipidemia - Morbid obesity (HCC) - ARACELI (obstructive sleep apnea) Severe Previous Surgical History PAST SURGICAL HISTORY Procedure Laterality Date - NONE Family History FAMILY HISTORY Problem Relation Age of Onset - Asthma Father - Diabetes Father - Hypertension Mother - Thyroid Mother - Hyperlipidemia Mother - other (migraines) Sister - Hypertension Brother - Hyperlipidemia Brother - Diabetes Paternal Grandmother - Alzheimer's Disease Paternal Grandmother - other (heart disease) Paternal Grandmother - other (cva stroke) Maternal Uncle - other (cva stroke) Maternal Aunt Patient Allergies ALLERGIES Allergen Reactions - Amoxicillin Swelling Swelling of the tongue - Asa [Aspirin] Other: See Comments Triggers asthma - Ceclor [Cefaclor] Hives Current Medications Current Outpatient Prescriptions on File Prior to Visit: CPAP Initiate Auto PAP @ 10-20 cm of water with humidification. Mask (per patient preference) optional chin strap (if indicated) , filters, tubing, humidifier and lifetime supplies. DULERA 100-5 mcg/actuation inhaler Inhale 2 Puffs as instructed twice daily. atorvastatin (LIPITOR) 80 mg tablet Take 1 tablet by mouth daily at bedtime. For cholesterol. albuterol HFA (PROVENTIL HFA, VENTOLIN HFA) 90 mcg/actuation inhaler Inhale 2 Puffs as instructed every 6 hours as needed for Wheezing/Shortness of Breath. Blood-Glucose Meter monitoring kit Glucose Meter of Choice - Kit - Dx: Type 2 DM - Uncontrolled E11.65 blood sugar diagnostic (BLOOD GLUCOSE TEST) test strip Test blood sugar(s) 1-2 times daily. Dx: Type 2 DM - Uncontrolled E11.65 Insulin: No Lancets lancets Test blood sugar(s) 1-2 times daily. Dx: Type 2 DM - Uncontrolled E11.65 Insulin: No metFORMIN ER (GLUCOPHAGE XR) 500 mg 24 hr tablet Take 1 tablet by mouth twice daily before meals. lisinopril (ZESTRIL, PRINIVIL) 5 mg tablet Take 1 tablet by mouth once daily. COMPOUNDED PRESCRIPTION Referral to [facility] for custom shoe orthotic assessmentPhone number [phone] code: E11.9 No current facility-administered medications on file prior to visit. Social History Social History Marital status: Single Spouse name: Years of education: Number of children: Social History Main Topics Smoking status: Never Smoker Smokeless tobacco: Former User Types: Chew Comment: use of cigarettes and chew for a week at age 16 Alcohol use: Yes Comment: rare Drug use: No Sexual activity: Yes Partners with: Female Comment: No use of protection Other Topics Concern Caffeine Concern Yes Comment:2-3 pops Social History Narrative Lives with girlfriend. Feels safe at home. Review of Symptoms REVIEW OF SYSTEMS GENERAL: No weight loss, malaise or fevers NECK: Negative for lumps, goiter, pain and significant neck swelling RESPIRATORY: See HPI CARDIOVASCULAR: Negative for chest pain, leg swelling, hypertension, CHF or palpitations GI: No nausea, vomiting, or diarrhea SKIN: Negative for lesions, rash, and itching EXAM: BP 126/74 Pulse 80 Resp 12 Wt (!) 161.5 kg (356 lb) BMI 48.27 kg/m? General Appearance: Well appearing, alert, in no acute distress, well-hydrated, well nourished.. Skin: Skin color, texture, turgor normal, no suspicious rashes or lesions. Lungs: Lungs clear to auscultation. No wheezing, rhonchi, rales. Heart: RRR without murmur, gallop, or rubs. No ectopy. Abdomen: Normal abdominal exam, Abdomen soft, non-tender. Bowel sounds normal. No masses, organomegaly. Extremities: No deformities, edema, skin discoloration, clubbing or cyanosis. Good capillary refill. . Health Maintenance List DTAP,TDAP,TD(1 - Tdap) due on 11/08/2002 INFLUENZA(1) due on 11/17/2017 STATIN MED ADHERENCE due on 01/17/2018 STEROID INHALER PRESCRIBED due on 01/17/2018 DIABETES MED ADHERENCE due on 01/17/2018 STEROID INHALER ADHERENCE due on 01/17/2018 HBA1C due on 04/01/2018 URINE ALBUMIN:CREATININE RATIO due on 06/28/2018 DIABETIC FOOT EXAM due on 06/28/2018 DILATED RETINAL EXAM due on 07/10/2018 ANNUAL PCP TEAM CHRONIC DISEASE VISIT due on 09/25/2018 LDL CHOLESTEROL due on 09/29/2018 ONE PNEUMOVAX PRIOR TO AGE 65 Completed Data reviewed Component Latest Ref Rng AND Units 03/22/2017 06/28/2017 09/29/2017 Protein, Total 6.3 - 8.0 g/dL 8.2 (H) 7.7 Albumin 3.9 - 4.9 g/dL 4.4 4.5 Calcium 8.5 - 10.2 mg/dL 9.6 9.5 Bilirubin, Total 0.2 - 1.3 mg/dL 0.3 0.3 Alkaline Phosphatase 36 - 108 U/L 64 62 AST 14 - 40 U/L 26 25 Glucose 74 - 99 mg/dL 119 (H) 165 (H) BUN 9 - 24 mg/dL 11 12 Creatinine 0.73 - 1.22 mg/dL 0.88 0.78 Sodium 136 - 144 mmol/L 138 139 Potassium 3.7 - 5.1 mmol/L 4.2 4.3 Chloride 97 - 105 mmol/L 98 100 CO2 22 - 30 mmol/L 20 (L) 26 Anion Gap 9 - 18 mmol/L 20 (H) 13 ALT 10 - 54 U/L 39 29 eGFR- >60 >60 eGFR-All Other Races . >60 >60 WBC 3.70 - 11.00 k/uL 10.52 RBC 4.20 - 6.00 m/uL 5.32 Hemoglobin 13.0 - 17.0 g/dL 15.1 Hematocrit 39.0 - 51.0 % 48.0 MCV 80.0 - 100.0 fL 90.2 MCH 26.0 - 34.0 pG 28.4 MCHC 30.5 - 36.0 g/dL 31.5 RDW-CV 11.5 - 15.0 % 13.3 Platelet Count 150 - 400 k/uL 319 MPV 9.0 - 12.7 fL 11.0 Absolute nRBC <0.01 k/uL <0.01 Triglyceride <150 mg/dL 164 (H) 190 (H) Cholesterol, Total <200 mg/dL 260 (H) 256 (H) HDL Cholesterol >39 mg/dL 36 (L) 38 (L) VLDL Cholesterol <30 mg/dL 33 38 (H) LDL Cholesterol <100 mg/dL 191 (H) 180 (H) Fasting Time hrs 16 12 TC:HDL Ratio <5.10 7.22 (H) 6.74 (H) LDL:HDL Ratio <2.54 5.31 (H) 4.74 (H) Non HDL Cholesterol <130 mg/dL 224 (H) 218 (H) Creatinine, Ur Random (UCRR) 20 - 300 mg/dL 175.4 Albumin, Urine Random 0.0 - 23.0 mg/L 20.4 Albumin/Creat Ratio 0 - 30 mg/g 12 Hemoglobin A1C 4.3 - 5.6 % 7.4 (H) 7.1 (H) Estimated Average Glucose mg/dL 166 157 ASSESSMENT/PLAN: 1. Type 2 diabetes mellitus without complication, without long-term current use of insulin (HCC) - ICD9: 250.00, ICD10: E11.9 (primary diagnosis) worsening control, will confirm A1C with lab draw - Increase metformin (Glucophage) - Blood glucose monitoring on a twice a day schedule - Encouraged regular aerobic exercise and weight loss - Daily Asprin therapy recommended - Follow up in 3 months, sooner should any other issues arise. - Discussed diabetic education issues of assisted diabetic complications, hypoglycemic symptoms, hyperglycemic symptoms, diet, medications- side effects and need for compliance and importance of exercise with patient. - HEMOGLOBIN A1C (POC) - HGB A1C - METFORMIN ER 500 MG TABLET,EXTENDED RELEASE 24 HR 2. Mixed hyperlipidemia - ICD9: 272.2, ICD10: E78.2 - to be determined upon return of lab results - Continue current medication. - Encouraged following a low fat, low cholesterol diet. - Discussed the benefits of regular aerobic exercise and weight loss. 3. Obesity, Class III, BMI >= 40 (morbid obesity) E66.01 - ICD9: 278.01, ICD10: E66.01 Weight stable. Discussed DM diet, exercise, and will recheck in 3 months. 4. ARACELI (obstructive sleep apnea) - ICD9: 327.23, ICD10: G47.33 Recommended CPAP use nightly. Contact company for new mask if having trouble with fitting. 5. Moderate persistent asthma without complication - ICD9: 493.90, ICD10: J45.40 Moderate persistent Asthma waxing and waning - Continue current meds - Albuterol MDI 2 puffs with spacer prn - Avoidance of triggers recommended Marla Najera MD Referring Provider: MARLA NAJERA () [[id number]] Allergies As of Date: 01/01/2018 Noted Allergy Reaction AMOXICILLIN 2016 7 - Swelling Comments: Swelling of the tongue ASA (ASPIRIN) 04/27/2014 14 - Other: See Comments Comments: Triggers asthma CECLOR (CEFACLOR) 04/27/2014 4 - Hives Date Reviewed: 01/01/2018 Reviewed by: Magda Nixon Ma - Fully Assessed Reason for Visit: F/U 3 Month [443] Cmt: DM, asthma, weight Primary Visit Diagnosis:Type 2 diabetes mellitus without complication, without long-term current use of insulin (HCC) [E11.9] Other Visit Diagnoses:Mixed hyperlipidemia [E78.2] Obesity, Class III, BMI >= 40 (morbid obesity) E66.01 [E66.01] ARACELI (obstructive sleep apnea) [G47.33] Moderate persistent asthma without complication [J45.40] Order(s):HEMOGLOBIN A1C (POC) [4635733] Order #: [id number] #:[id number] HGB A1C [EZMAX3F] Order #: [id number] FUTURE metFORMIN ER (GLUCOPHAGE XR) 500 mg 24 hr tabletTake 2 tablets by mouth twice daily before meals.Disp: 120 tabletRfl: 5 Prescriptions as of 01/01/2018 Sig: METFORMIN ER 500 MG TABLET,EX* Take 2 tablets by mouth twice* CPAP Initiate Auto PAP @ 10- 20 cm * DULERA 100 MCG-5 MCG/ACTUATIO* Inhale 2 Puffs as instructed * ATORVASTATIN 80 MG TABLET Take 1 tablet by mouth daily * ALBUTEROL SULFATE HFA 90 MCG/* Inhale 2 Puffs as instructed * BLOOD-GLUCOSE METER KIT Glucose Meter of Choice - Kit* BLOOD SUGAR DIAGNOSTIC STRIPS Test blood sugar(s) 1- 2 times* LANCETS Test blood sugar(s) 1- 2 times* LISINOPRIL 5 MG TABLET Take 1 tablet by mouth once d* COMPOUNDED PRESCRIPTION Referral to [facility] for* Problem List As Of Date 01/01/2018 Noted Resolved Asthma [J45.909] INVALID FOR* More... Allergic rhinitis [J30.9] INVALID FOR* More... Environmental and seasonal allergies [J30.89] Obesity, Class III, BMI >= 40 (morbid obesity) *INVALID FOR* Diabetes mellitus, type II (HCC) [E11.9] Hyperlipidemia [E78.5] ARACELI (obstructive sleep apnea) [G47.33] More... Prescriptions ordered this encounter Disp Refills Start End METFORMIN ER 500 MG TABLET,EXTENDED * 120 * 5 01/01/2018 Route: ORAL Sig: Take 2 tablets by mouth twice daily before meals. Medications Discontinued During This Encounter metFORMIN ER (GLUCOPHAGE XR) 500 mg * 60 t* 5 09/25/2017 01/01/2018 Route: ORAL Sig: Take 1 tablet by mouth twice daily before meals. Disc: Reason for discontinue is not on file. Disposition: Return in about 3 months (around 04/03/2018). Follow-up and Disposition History Recorded Encounter Status:Closed by MARLA NAJERA MD on 01/02/18 PROGRESS Observed: 01/01/2018 Status: COMPLETED Source: [place] 6:45 PM [facility] REPOSITORY O ID: [id number] Author: Marla Ahmadi) Reinaldo Service: (none) Author Type: Physician Type: Progress Notes Filed: 01/02/2018 7:55 AM Note Text: Chief Complaint Patient presents with: F/U 3 Month: DM, asthma, weight HPI Guera Fragoso is a 32 year old male who presents here today for 3 month diabetes follow up. DIABETES MELLITUS: Mr. Fragoso was last seen 3 months ago. Started on metformin XR at last OV due to blurred vision with Metformin. Since our last visit he denies excessive thirst or increased frequency of urination, numbness, tingling or pain in extremities and low sugar/hypoglycemic reactions. Admits to blurred vision episode last week with sugars in the 300-400 range. Had urinary frequency with hyperglycemia, but this has resolved with readings in the upper 100's this week. Follows a diabetic diet some of the time. He is compliant with medication(s) and is tolerating med(s) without any side effects. He reports checking his glucose on a once a day schedule with sugars in the 150-180 range. Patient's last HgA1C was Hemoglobin A1C (%) Date Value 09/29/2017 7.1 03/22/2017 7.4 Hemoglobin A1C (POCT) (%) Date Value 01/01/2018 11.1 ) Last Ophthalmology exam was within the past 12 months Last Podiatry exam was within the past 12 months Asthma: has been using Dulera BID as recommended and has noticed with weather change that he has been getting more wheezing. For the last week has been using his albuterol 3-4 times per day. Has this with season change and when weather stabilizes his symptoms. Was using albuterol not even weekly before weather change. ARACELI: Using CPAP nightly. Mask occasionally leaking and making it hard for him to sleep. Denies daytime somnolence. Refusing immunizations today. Past medical history, appointments, medications, allergies reviewed. Previous Medical History PAST MEDICAL HISTORY Diagnosis Date - Allergic rhinitis - Asthma - Diabetes mellitus, type II (HCC) - Environmental and seasonal allergies - Hyperlipidemia - Morbid obesity (HCC) - ARACELI (obstructive sleep apnea) Severe Previous Surgical History PAST SURGICAL HISTORY Procedure Laterality Date - NONE Family History FAMILY HISTORY Problem Relation Age of Onset - Asthma Father - Diabetes Father - Hypertension Mother - Thyroid Mother - Hyperlipidemia Mother - other (migraines) Sister - Hypertension Brother - Hyperlipidemia Brother - Diabetes Paternal Grandmother - Alzheimer's Disease Paternal Grandmother - other (heart disease) Paternal Grandmother - other (cva stroke) Maternal Uncle - other (cva stroke) Maternal Aunt Patient Allergies ALLERGIES Allergen Reactions - Amoxicillin Swelling Swelling of the tongue - Asa [Aspirin] Other: See Comments Triggers asthma - Ceclor [Cefaclor] Hives Current Medications Current Outpatient Prescriptions on File Prior to Visit: CPAP Initiate Auto PAP @ 10-20 cm of water with humidification. Mask (per patient preference) optional chin strap (if indicated) , filters, tubing, humidifier and lifetime supplies. DULERA 100-5 mcg/actuation inhaler Inhale 2 Puffs as instructed twice daily. atorvastatin (LIPITOR) 80 mg tablet Take 1 tablet by mouth daily at bedtime. For cholesterol. albuterol HFA (PROVENTIL HFA, VENTOLIN HFA) 90 mcg/actuation inhaler Inhale 2 Puffs as instructed every 6 hours as needed for Wheezing/Shortness of Breath. Blood-Glucose Meter monitoring kit Glucose Meter of Choice - Kit - Dx: Type 2 DM - Uncontrolled E11.65 blood sugar diagnostic (BLOOD GLUCOSE TEST) test strip Test blood sugar(s) 1-2 times daily. Dx: Type 2 DM - Uncontrolled E11.65 Insulin: No Lancets lancets Test blood sugar(s) 1-2 times daily. Dx: Type 2 DM - Uncontrolled E11.65 Insulin: No metFORMIN ER (GLUCOPHAGE XR) 500 mg 24 hr tablet Take 1 tablet by mouth twice daily before meals. lisinopril (ZESTRIL, PRINIVIL) 5 mg tablet Take 1 tablet by mouth once daily. COMPOUNDED PRESCRIPTION Referral to [facility] for custom shoe orthotic assessmentPhone number [phone] code: E11.9 No current facility-administered medications on file prior to visit. Social History Social History Marital status: Single Spouse name: Years of education: Number of children: Social History Main Topics Smoking status: Never Smoker Smokeless tobacco: Former User Types: Chew Comment: use of cigarettes and chew for a week at age 16 Alcohol use: Yes Comment: rare Drug use: No Sexual activity: Yes Partners with: Female Comment: No use of protection Other Topics Concern Caffeine Concern Yes Comment:2-3 pops Social History Narrative Lives with girlfriend. Feels safe at home. Review of Symptoms REVIEW OF SYSTEMS GENERAL: No weight loss, malaise or fevers NECK: Negative for lumps, goiter, pain and significant neck swelling RESPIRATORY: See HPI CARDIOVASCULAR: Negative for chest pain, leg swelling, hypertension, CHF or palpitations GI: No nausea, vomiting, or diarrhea SKIN: Negative for lesions, rash, and itching EXAM: BP 126/74 Pulse 80 Resp 12 Wt (!) 161.5 kg (356 lb) BMI 48.27 kg/m? General Appearance: Well appearing, alert, in no acute distress, well-hydrated, well nourished.. Skin: Skin color, texture, turgor normal, no suspicious rashes or lesions. Lungs: Lungs clear to auscultation. No wheezing, rhonchi, rales. Heart: RRR without murmur, gallop, or rubs. No ectopy. Abdomen: Normal abdominal exam, Abdomen soft, non-tender. Bowel sounds normal. No masses, organomegaly. Extremities: No deformities, edema, skin discoloration, clubbing or cyanosis. Good capillary refill. . Health Maintenance List DTAP,TDAP,TD(1 - Tdap) due on 11/08/2002 INFLUENZA(1) due on 11/17/2017 STATIN MED ADHERENCE due on 01/17/2018 STEROID INHALER PRESCRIBED due on 01/17/2018 DIABETES MED ADHERENCE due on 01/17/2018 STEROID INHALER ADHERENCE due on 01/17/2018 HBA1C due on 04/01/2018 URINE ALBUMIN:CREATININE RATIO due on 06/28/2018 DIABETIC FOOT EXAM due on 06/28/2018 DILATED RETINAL EXAM due on 07/10/2018 ANNUAL PCP TEAM CHRONIC DISEASE VISIT due on 09/25/2018 LDL CHOLESTEROL due on 09/29/2018 ONE PNEUMOVAX PRIOR TO AGE 65 Completed Data reviewed Component Latest Ref Rng AND Units 03/22/2017 06/28/2017 09/29/2017 Protein, Total 6.3 - 8.0 g/dL 8.2 (H) 7.7 Albumin 3.9 - 4.9 g/dL 4.4 4.5 Calcium 8.5 - 10.2 mg/dL 9.6 9.5 Bilirubin, Total 0.2 - 1.3 mg/dL 0.3 0.3 Alkaline Phosphatase 36 - 108 U/L 64 62 AST 14 - 40 U/L 26 25 Glucose 74 - 99 mg/dL 119 (H) 165 (H) BUN 9 - 24 mg/dL 11 12 Creatinine 0.73 - 1.22 mg/dL 0.88 0.78 Sodium 136 - 144 mmol/L 138 139 Potassium 3.7 - 5.1 mmol/L 4.2 4.3 Chloride 97 - 105 mmol/L 98 100 CO2 22 - 30 mmol/L 20 (L) 26 Anion Gap 9 - 18 mmol/L 20 (H) 13 ALT 10 - 54 U/L 39 29 eGFR- >60 >60 eGFR-All Other Races . >60 >60 WBC 3.70 - 11.00 k/uL 10.52 RBC 4.20 - 6.00 m/uL 5.32 Hemoglobin 13.0 - 17.0 g/dL 15.1 Hematocrit 39.0 - 51.0 % 48.0 MCV 80.0 - 100.0 fL 90.2 MCH 26.0 - 34.0 pG 28.4 MCHC 30.5 - 36.0 g/dL 31.5 RDW-CV 11.5 - 15.0 % 13.3 Platelet Count 150 - 400 k/uL 319 MPV 9.0 - 12.7 fL 11.0 Absolute nRBC <0.01 k/uL <0.01 Triglyceride <150 mg/dL 164 (H) 190 (H) Cholesterol, Total <200 mg/dL 260 (H) 256 (H) HDL Cholesterol >39 mg/dL 36 (L) 38 (L) VLDL Cholesterol <30 mg/dL 33 38 (H) LDL Cholesterol <100 mg/dL 191 (H) 180 (H) Fasting Time hrs 16 12 TC:HDL Ratio <5.10 7.22 (H) 6.74 (H) LDL:HDL Ratio <2.54 5.31 (H) 4.74 (H) Non HDL Cholesterol <130 mg/dL 224 (H) 218 (H) Creatinine, Ur Random (UCRR) 20 - 300 mg/dL 175.4 Albumin, Urine Random 0.0 - 23.0 mg/L 20.4 Albumin/Creat Ratio 0 - 30 mg/g 12 Hemoglobin A1C 4.3 - 5.6 % 7.4 (H) 7.1 (H) Estimated Average Glucose mg/dL 166 157 ASSESSMENT/PLAN: 1. Type 2 diabetes mellitus without complication, without long-term current use of insulin (HCC) - ICD9: 250.00, ICD10: E11.9 (primary diagnosis) worsening control, will confirm A1C with lab draw - Increase metformin (Glucophage) - Blood glucose monitoring on a twice a day schedule - Encouraged regular aerobic exercise and weight loss - Daily Asprin therapy recommended - Follow up in 3 months, sooner should any other issues arise. - Discussed diabetic education issues of predatory animal exterminator diabetic complications, hypoglycemic symptoms, hyperglycemic symptoms, diet, medications- side effects and need for compliance and importance of exercise with patient. - HEMOGLOBIN A1C (POC) - HGB A1C - METFORMIN ER 500 MG TABLET,EXTENDED RELEASE 24 HR 2. Mixed hyperlipidemia - ICD9: 272.2, ICD10: E78.2 - to be determined upon return of lab results - Continue current medication. - Encouraged following a low fat, low cholesterol diet. - Discussed the benefits of regular aerobic exercise and weight loss. 3. Obesity, Class III, BMI >= 40 (morbid obesity) E66.01 - ICD9: 278.01, ICD10: E66.01 Weight stable. Discussed DM diet, exercise, and will recheck in 3 months. 4. ARACELI (obstructive sleep apnea) - ICD9: 327.23, ICD10: G47.33 Recommended CPAP use nightly. Contact company for new mask if having trouble with fitting. 5. Moderate persistent asthma without complication - ICD9: 493.90, ICD10: J45.40 Moderate persistent Asthma waxing and waning - Continue current meds - Albuterol MDI 2 puffs with spacer prn - Avoidance of triggers recommended Marla Najera MD PROGRESS Observed: 10/18/2017 Status: COMPLETED Source: [place] 3:23 AM [facility] REPOSITORY HNO ID: [id number] Author: Yesi Byrd Poly-T Service: (none) Author Type: (none) Type: Progress Notes Filed: 10/18/2017 3:24 AM Note Text: Sleep Study Check-In Documentation Date: October 18, 2017 Name: Guera Fragoso Patient was accompanied by Self. Location: [place] Latex allergy: No Tape allergy: No Current medications were reviewed with the patient:Yes Sleep aid taken by patient for the sleep study: [place] of sleep aid: Not Applicable Procedure was explained to the patient and all questions were answered. PAP treatment discussed and shown to patient: Yes If PAP used enter mask info: Mask Name Quattro Mirage Make ResMed MaskTypeFull Face Mask SizeLarge Chin Sharp Used No Knowledge Program (KP): KP was not completed in [facility] by patient and accepted Study type: Split Study-Polysomnogram with CPAP titration Adverse Event: No (If yes create a new abstract) SERS Event: No Comments: Patient was advised to follow up with their ordering provider regarding test results Yesi Byrd Poly-T PROGRESS Observed: 10/13/2017 Status: COMPLETED Source: [place] 12:54 AM [facility] REPOSITORY HNO ID: [id number] Author: Jenn Ta-Mc Service: (none) Author Type: (none) Type: Progress Notes Filed: 10/18/2017 3:24 AM Note Text: October 13, 2017 The electronic medical record was reviewed to determine if the proposed sleep study conforms to the AASM Practice Parameters for the Indications for Polysomnography and Related Procedures, or if the sleep study is indicated for other reasons. Indications for study: ARACELI suspected with comorbid medical or sleep disorders: Morbid obesity (BMI>40 kg/m2) Sleep study to be performed: Polysomnogram Special instructions: Target REM/supine sleep Add EtCO2 or Transcutaneous CO2 if available Jenn Menon I have read the above protocol, edited as needed, and agree to the plan Thee Aragon III, PhD, [facility] PROGRESS Observed: 10/12/2017 Status: COMPLETED Source: [place] 10:30 AM [facility] REPOSIT[facility] HNO ID: [id number] Author: Nohemy Mobley Service: (none) Author Type: (none) Type: Progress Notes Filed: 10/18/2017 3:24 AM Note Text: October 12, 2017 An order has been received for Polysomnogram (PSG) from [facility]. [facility] Staff. Visit prep complete. Comments :No The sleep study is scheduled for 10/17/2017. Insurance: Payor: [place]HA MEDICAID / Plan: DANISHA [facility] MEDICAID / Product Type: Medicaid / Nohemy Dalia [employer] [facility] Observed: 10/05/2017 Status: COMPLETED Source: [place] 12:00 AM [facility] REPOSITORY Telephone (FAMPWS) GUERA FRAGOSO ([id number]) 1985 M Date Time Provider Department 10/05/17 MARLA NAJERA) FAMPWS During your visit today, we recorded the following information about you: Kelle Bee Psr 10/05/2017 2:20 PM Signed Guera Fragoso is calling Marla Najera MD today to request Orders for a sleep study Patient has been identified by name and birthdate. Duration of symptoms: N/A Person calling: self Call patient at: on cell [phone] (home) [phone] (cell) Was an appointment scheduled: No Patient is calling to request orders to have a sleep study. Please call patient at [phone] and advise. Thank you, Closing statement: Results or non-symptom based questions: Thank you for calling [facility], your call will be returned within the next business day. Kelle Bee Psr Marla Najera MD 10/05/2017 5:08 PM Signed What symptoms is patient having that he is requesting this? Need info to get approved. Snoring at night? Daytime somnolence? Stops breathing at night? Magda Nixon Ma 10/05/2017 5:13 PM Signed Snoring - yes somnolence - yes Apnea - yes Patient states that he does also have asthma. Marla Najera MD 10/05/2017 5:15 PM Signed Order placed as requested. Recommend sleeping on side at night, weight loss, and avoidance of alcohol prior to bed. Magda Nixon Ma 10/09/2017 11:04 AM Signed Please contact patient to schedule sleep study. Thanks Mikaela Lew Psr 10/10/2017 12:30 PM Signed Called patient. Patient 's nakul stated he would call back to schedule Lucia Mckeon, RN, RN 10/10/2017 1:22 PM Signed Message given and pt voiced understanding. Transferred to psr to schedule an appt. Delores Gonzalez Psr 10/11/2017 9:26 AM Signed Spoke to patient who states he has been scheduled for this weekend in [place]. Allergies As of Date: 10/05/2017 Noted Allergy Reaction AMOXICILLIN 2016 7 - Swelling Comments: Swelling of the tongue ASA (ASPIRIN) 04/27/2014 14 - Other: See Comments Comments: Triggers asthma CECLOR (CEFACLOR) 04/27/2014 4 - Hives Date Reviewed: 09/25/2017 Reviewed by: Magda Nixon Ma - Fully Assessed Reason for Visit: Orders [681] Primary Visit Diagnosis:Daytime somnolence [R40.0] Order(s):POLYSOMNOGRAM (PSG)/HOME SLEEP APNEA TESTING (HSAT) [6224124] Order #: [id number] FUTURE Prescriptions as of 10/05/2017 Sig: ATORVASTATIN 80 MG TABLET Take 1 tablet by mouth daily * ALBUTEROL SULFATE HFA 90 MCG/* Inhale 2 Puffs as instructed * BLOOD-GLUCOSE METER KIT Glucose Meter of Choice - Kit* BLOOD SUGAR DIAGNOSTIC STRIPS Test blood sugar(s) 1- 2 times* LANCETS Test blood sugar(s) 1- 2 times* METFORMIN ER 500 MG TABLET,EX* Take 1 tablet by mouth twice * LISINOPRIL 5 MG TABLET Take 1 tablet by mouth once d* COMPOUNDED PRESCRIPTION Referral to [facility] for* MOMETASONE-FORMOTEROL HFA 100* Inhale 2 Puffs as instructed * Problem List As Of Date 10/05/2017 Noted Resolved Asthma [J45.909] INVALID FOR* More... Allergic rhinitis [J30.9] INVALID FOR* More... Environmental and seasonal allergies [J30.89] Obesity, Class III, BMI >= 40 (morbid obesity) *INVALID FOR* Diabetes mellitus, type II (HCC) [E11.9] Hyperlipidemia [E78.5] Encounter Status:Closed by LUCIA MCKEON on 10/10/17 COMP METABOLIC PANEL Collected: 09/29/2017 Status: F Source: [place] 10:53 AM [facility] TYPE CODE TESTS RESULT OUT OF REFERENCE UNITS RANGE LAB TP 6.3-8.0 g/dL Protein, Total 7.7 LAB ALB 3.9-4.9 g/dL Albumin 4.5 LAB CA 8.5-10.2 mg/dL Calcium, Total 9.5 LAB TBIL 0.2-1.3 mg/dL Bilirubin, Total 0.3 LAB ALKP 36-108 U/L Alkaline Phosphatase 62 LAB AST 14-40 U/L AST 25 LAB GLU 74-99 mg/dL Glucose High 165 Result Comment: The [place] Diabetes Association (ADA) provides guidance for cutoff values for fasting glucose and random glucose. The ADA defines fasting as no caloric intake for at least 8 hours. Fas ting plasma glucose results between 100 to 125 mg/dL indicate increased risk for diabetes (prediabetes). Fasting plasma glucose results greater than or equal to 126 mg/dL meet the criteria for diagnosis of diabetes. In the absence of unequivocal hyperglycemia, results should be confirmed by repeat testing. In a patient with classic symptoms of hyperglycemia or hyperglycemic crisis, random plasma glucose results greater than or equal to 200 mg/dL meet the criteria for diagnosis of diabetes. Reference: Standards of Medical Care in Diabetes 2016, [place] Diabetes Association. Diabetes Care. 2016.39(Suppl 1). LAB BUN 9-24 mg/dL BUN 12 LAB CRET 0.73-1.22 mg/dL Creatinine 0.78 LAB NA 136-144 mmol/L Sodium 139 LAB K 3.7-5.1 mmol/L Potassium 4.3 LAB CL 97-105 mmol/L Chloride 100 LAB CO2 22-30 mmol/L CO2 26 LAB AGAP 9-18 mmol/L Anion Gap 13 LAB ALT 10-54 U/L ALT 29 LAB GFRAA eGFR- Amer. >60 LAB GFRNAA . eGFR-All Other Races >60 Result Comment: eGFR (Estimated GFR) Units of measure: mL/min/1.73 meters squared eGFR is derived from the reexpressed MDRD Study equation using the following parameters: serum creatinine, age, gender and race. The creatinine assay has been calibrated to be traceable to IDMS. An eGFR <60 mL/min/1.73m2 for >3 months is consistent with chronic kidney disease. Refer to KDOQI guidelines for clinical interpretation. In patients with unstable renal function, e.g. those with acute kidney injury, the eGFR may not accurately reflect actual GFR. Performed By: #### CMP, LIPB, HBA1C #### [facility] [address] [place] [address] LIPID PANEL, BASIC Collected: 09/29/2017 Status: F Source: [place] 10:53 AM [facility] REPOSITORY TYPE CODE TESTS RESULT OUT OF REFERENCE UNITS RANGE LAB CHOL <200 mg/dL Cholesterol High 256 Result Comment: <200 mg/dL, Desirable 200-239 mg/dL, Borderline high >239 mg/dL, High LAB TRIGLY <150 mg/dL Triglyceride High 190 Result Comment: <150 mg/dL, Normal 150-199 mg/dL, Borderline high 200-499 mg/dL, High >499 mg/dL, Very high LAB HDL >39 mg/dL HDL-Cholesterol Low 38 Result Comment: 40-59 mg/dL, Acceptable >59 mg/dL, High: Negative risk factor for coronary heart disease <40 mg/dL, Low: Positive risk factor for coronary heart disease LAB LDL <100 mg/dL LDL-Cholesterol High 180 Result Comment: <100 mg/dL, Optimal 100-129 mg/dL, Near optimal/above optimal 130-159 mg/dL, Borderline high 160-189 mg/dL, High >189 mg/dL, Very high Secondary prevention optimal LDL Cholesterol levels are recommended to be < 70 mg/dL LAB NONHDL <130 mg/dL Non HDL High Cholesterol 218 Result Comment: <130 mg/dL, Optimal 130-159 mg/dL, Near optimal/above optimal 160-189 mg/dL, Borderline high 190-219 mg/dL, High >219 mg/dL, Very high Secondary prevention optimal non HDL Cholesterol levels are recommended to be < 100 mg/dL LAB FT hrs Fasting Time 12 LAB VLDL <30 mg/dL High VLDL Cholesterol 38 LAB TCHDL <5.10 High TC:HDL Ratio 6.74 LAB LDLHDL <2.54 High LDL:HDL Ratio 4.74 Result Comment: Reference: 1. National Cholesterol Education Program ATP III Guideline At-A-Glance Quick Desk Reference: National Heart, Lung, and Blood [place]. National Institutes of Health. 2001: NIH Publication No. 01-3305. 2. An International Atherosclerosis Society position paper: global recommendations for the management of dyslipidemia: executive summary, Atherosclerosis. 2014: 232(2):410-413. Performed By: #### CMP, LIPB, HBA1C #### [facility] [address] [place], [place] [address] HEMOGLOBIN A1C Collected: 09/29/2017 Status: F Source: [place] 10:53 AM [facility] REPOSITORY TYPE CODE TESTS RESULT OUT OF REFERENCE UNITS RANGE LAB HGBA1C 4.3-5.6 % High Hemoglobin A1c 7.1 LAB HBA0 mg/dL Est. Average Glucose 157 Result Comment: eAG: (Estimated average glucose) is a calculated value from HgbA1c and is service representative of the average blood glucose level in the last 2-3 month period. Performed By: #### CMP, LIPB, HBA1C #### [facility] [address] [place], [place] [address] DELANEY Observed: 09/25/2017 Status: COMPLETED Source: [place] 6:00 PM [facility] RE[facility] Office Visit (FAMPWS) GUERA FRAGOSO ([id number]) 1985 M Date Time Provider Department 09/25/17 6:00 PM MARLA NAJERA) FAMPWS During your visit today, we recorded the following information about you: Pulse Respiration Blood pressure Weight 80/minute 18/minute 136/86 162.8 kg Marla Najera MD 09/25/2017 6:34 PM Signed Chief Complaint Patient presents with: 6 Month Exam HPI Guera Fragoso is a 31 year old male who presents here today for 6 month follow up new finding of diabetes mellitus type II. DIABETES MELLITUS: Mr. Fragoso was last seen 6 months ago. Stopped taking metformin because it was causing blurred vision and thinks that it dropped his blood sugar too low. Discussed that metformin does not typically cause hypoglycemia, may have been his body adjusting to normal glucose levels. Since our last visit he denies excessive thirst or increased frequency of urination and numbness, tingling or pain in extremities. Follows a diabetic diet generally not very much. He is not compliant with medication(s) due to side effects of blurred vision. He reports checking his glucose on a infrequent to not at all basis. Patient's last HgA1C was Hemoglobin A1C (%) Date Value 03/22/2017 7.4 ) Last Ophthalmology exam was within the 3 months and was normal. Last Podiatry exam was within the past 3 months Discussed starting VERN inhibitor for renal protection. Requesting refill on albuterol inhaler. Taking dulera as prescribed for asthma and symptoms well controlled. Past medical history, appointments, medications, allergies reviewed. Previous Medical History PAST MEDICAL HISTORY Diagnosis Date - Allergic rhinitis - Asthma - Diabetes mellitus, type II (HCC) - Environmental and seasonal allergies - Hyperlipidemia - Morbid obesity (HCC) Previous Surgical History PAST SURGICAL HISTORY Procedure Laterality Date - NONE Family History FAMILY HISTORY Problem Relation Age of Onset - Asthma Father - Diabetes Father - Hypertension Mother - Thyroid Mother - Hyperlipidemia Mother - migraines [OTHER] Sister - Hypertension Brother - Hyperlipidemia Brother - Diabetes Paternal Grandmother - Alzheimer's Disease Paternal Grandmother - heart disease [OTHER] Paternal Grandmother - cva stroke [OTHER] Maternal Uncle - cva stroke [OTHER] Maternal Aunt Patient Allergies ALLERGIES Allergen Reactions - Amoxicillin Swelling Swelling of the tongue - Asa [Aspirin] Other: See Comments Triggers asthma - Ceclor [Cefaclor] Hives Current Medications Current Outpatient Prescriptions on File Prior to Visit: COMPOUNDED PRESCRIPTION [facility] assessmentPhone number [phone] code: E11.9 mometasone-formoterol (DULERA) 100-5 mcg/actuation inhaler Inhale 2 Puffs as instructed twice daily. atorvastatin (LIPITOR) 40 mg tablet Take 1 tablet by mouth daily at bedtime. For cholesterol. metFORMIN (GLUCOPHAGE) 500 mg tablet Take 1 tablet by mouth twice daily with meals. . albuterol HFA (PROVENTIL HFA, VENTOLIN HFA) 90 mcg/actuation inhaler Inhale 2 Puffs as instructed every 6 hours as needed for Wheezing/Shortness of Breath. No current facility-administered medications on file prior to visit. Social History Social History Marital status: Single Spouse name: Years of education: Number of children: Social History Main Topics Smoking status: Never Smoker Smokeless tobacco: Former User Types: Chew Comment: use of cigarettes and chew for a week at age 16 Alcohol use: Yes Comment: rare Drug use: No Sexual activity: Yes Partners with: Female Comment: No use of protection Other Topics Concern Caffeine Concern Yes Comment:2-3 pops Social History Narrative Lives with girlfriend. Feels safe at home. Review of Symptoms REVIEW OF SYSTEMS GENERAL: No weight loss, malaise or fevers RESPIRATORY: Negative for cough, hemoptysis, wheezing, COPD, dyspnea or shortness of breath CARDIOVASCULAR: Negative for chest pain, leg swelling, hypertension, CHF or palpitations GI: No nausea, vomiting, or diarrhea SKIN: Negative for lesions, rash, and itching EXAM: BP 136/86 Pulse 80 Resp 18 Wt (!) 162.8 kg (359 lb) BMI 48.69 kg/m? General Appearance: Well appearing, alert, in no acute distress, well-hydrated, well nourished.. Skin: Skin color, texture, turgor normal, no suspicious rashes or lesions. Lungs: Lungs clear to auscultation. No wheezing, rhonchi, rales. Heart: RRR without murmur, gallop, or rubs. No ectopy. Abdomen: Abdomen soft, non-tender. Bowel sounds normal. No organomegaly. Small umbilical hernia, non tender to palpation. Extremities: No deformities, edema, skin discoloration, clubbing or cyanosis. Good capillary refill. . Health Maintenance List DTAP,TDAP,TD(1 - Tdap) due on 11/08/2002 HBA1C due on 09/19/2017 INFLUENZA(1) due on 11/17/2017 LDL due on 03/22/2018 URINE ALBUMIN CREATININE RATIO due on 06/28/2018 DIABETIC FOOT EXAM due on 06/28/2018 DILATED RETINAL EXAM due on 07/10/2018 ONE PNEUMOVAX PRIOR TO AGE 65 Completed Data reviewed Component Latest Ref Rng AND Units 03/22/2017 06/28/2017 Protein, Total 6.3 - 8.0 g/dL 8.2 (H) Albumin 3.9 - 4.9 g/dL 4.4 Calcium 8.5 - 10.2 mg/dL 9.6 Bilirubin, Total 0.2 - 1.3 mg/dL 0.3 Alkaline Phosphatase 36 - 108 U/L 64 AST 14 - 40 U/L 26 Glucose 74 - 99 mg/dL 119 (H) BUN 9 - 24 mg/dL 11 Creatinine 0.73 - 1.22 mg/dL 0.88 Sodium 136 - 144 mmol/L 138 Potassium 3.7 - 5.1 mmol/L 4.2 Chloride 97 - 105 mmol/L 98 CO2 22 - 30 mmol/L 20 (L) Anion Gap 9 - 18 mmol/L 20 (H) ALT 10 - 54 U/L 39 eGFR- >60 eGFR-All Other Races . >60 WBC 3.70 - 11.00 k/uL 10.52 RBC 4.20 - 6.00 m/uL 5.32 Hemoglobin 13.0 - 17.0 g/dL 15.1 Hematocrit 39.0 - 51.0 % 48.0 MCV 80.0 - 100.0 fL 90.2 MCH 26.0 - 34.0 pG 28.4 MCHC 30.5 - 36.0 g/dL 31.5 RDW-CV 11.5 - 15.0 % 13.3 Platelet Count 150 - 400 k/uL 319 MPV 9.0 - 12.7 fL 11.0 Absolute nRBC <0.01 k/uL <0.01 Triglyceride 30 - 149 mg/dL 164 (H) Cholesterol, Total 100 - 199 mg/dL 260 (H) HDL Cholesterol >45 mg/dL 36 (L) VLDL Cholesterol 6 - 40 mg/dL 33 LDL Cholesterol 60 - 129 mg/dL 191 (H) Fasting Time hrs 16 TC:HDL Ratio 1.00 - 5.00 7.22 (H) LDL:HDL Ratio 0.50 - 3.55 5.31 (H) Non HDL Cholesterol 90 - 159 mg/dL 224 (H) Creatinine, Ur Random (UCRR) 20 - 300 mg/dL 175.4 Albumin, Urine Random 0.0 - 23.0 mg/L 20.4 Albumin/Creat Ratio 0 - 30 mg/g 12 Hemoglobin A1C 4.3 - 5.6 % 7.4 (H) Estimated Average Glucose mg/dL 166 ASSESSMENT/PLAN: 1. Type 2 diabetes mellitus without complication, without long-term current use of insulin (HCC) - ICD9: 250.00, ICD10: E11.9 (primary diagnosis) uncontrolled - Add Metformin XR BID - Blood glucose monitoring on a twice a day schedule - Encouraged regular aerobic exercise and weight loss - Follow up in 3 months, sooner should any other issues arise. - Discussed diabetic education issues of assisted diabetic complications, hypoglycemic symptoms, hyperglycemic symptoms, diet, medications- side effects and need for compliance, importance of exercise and importance of annual examinations with Opthalmology with patient. - BLOOD-GLUCOSE METER KIT - BLOOD SUGAR DIAGNOSTIC STRIPS - LANCETS - METFORMIN ER 500 MG TABLET,EXTENDED RELEASE 24 HR - LISINOPRIL 5 MG TABLET - COMP METABOLIC PANEL - HGB A1C 2. Moderate persistent asthma without complication - ICD9: 493.90, ICD10: J45.40 Moderate persistent Asthma stable - Continue current meds - Avoidance of triggers recommended - ALBUTEROL SULFATE HFA 90 MCG/ACTUATION AEROSOL INHALER 3. Mixed hyperlipidemia - ICD9: 272.2, ICD10: E78.2 - Continue current medication. - Encouraged following a low fat, low cholesterol diet. - Discussed the benefits of regular aerobic exercise and weight loss. 4. Obesity, Class III, BMI >= 40 (morbid obesity) E66.01 - ICD9: 278.01, ICD10: E66.01 Weight unchanged in 6 months. Advised improved diet, regular exercise. Will recheck in 3 months and discuss further. Marla Najera MD Referring Provider: SELF [[id number]] Allergies As of Date: 09/25/2017 Noted Allergy Reaction AMOXICILLIN 2016 7 - Swelling Comments: Swelling of the tongue ASA (ASPIRIN) 04/27/2014 14 - Other: See Comments Comments: Triggers asthma CECLOR (CEFACLOR) 04/27/2014 4 - Hives Date Reviewed: 09/25/2017 Reviewed by: Magda Nixon Ma - Fully Assessed Reason for Visit: 6 Month Exam [189] Primary Visit Diagnosis:Type 2 diabetes mellitus without complication, without long-term current use of insulin (HCC) [E11.9] Other Visit Diagnoses:Moderate persistent asthma without complication [J45.40] Mixed hyperlipidemia [E78.2] Obesity, Class III, BMI >= 40 (morbid obesity) E66.01 [E66.01] Order(s):albuterol HFA (PROVENTIL HFA, VENTOLIN HFA) 90 mcg/actuation inhalerInhale 2 Puffs as instructed every 6 hours as needed for Wheezing/Shortness of Breath.Disp: 1 InhalerRfl: 5 Blood-Glucose Meter monitoring kitGlucose Meter of Choice - Kit - Dx: Type 2 DM - Uncontrolled E11.Disp: 1 EachRfl: 0 blood sugar diagnostic (BLOOD GLUCOSE TEST) test stripTest blood sugar(s) 1-2 times daily. Dx: Type 2 DM - Uncontrolled E11.65 Insulin: NoDisp: 50 StripRfl: 11 Lancets lancetsTest blood sugar(s) 1-2 times daily. Dx: Type 2 DM - Uncontrolled E11.65 Insulin: NoDisp: 100 EachRfl: 11 metFORMIN ER (GLUCOPHAGE XR) 500 mg 24 hr tabletTake 1 tablet by mouth twice daily before meals.Disp: 60 tabletRfl: 5 lisinopril (ZESTRIL, PRINIVIL) 5 mg tabletTake 1 tablet by mouth once daily.Disp: 30 tabletRfl: 5 COMP METABOLIC PANEL [SQCMP] Order #: [id number] FUTURE HGB A1C [KWGPT9N] Order #: [id number] FUTURE LIPID PANEL BASIC [SQLIPB] Order #: [id number] FUTURE Prescriptions as of 09/25/2017 Sig: ALBUTEROL SULFATE HFA 90 MCG/* Inhale 2 Puffs as instructed * MOMETASONE-FORMOTEROL HFA 100* Inhale 2 Puffs as instructed * ATORVASTATIN 40 MG TABLET Take 1 tablet by mouth daily * BLOOD-GLUCOSE METER KIT Glucose Meter of Choice - Kit* BLOOD SUGAR DIAGNOSTIC STRIPS Test blood sugar(s) 1- 2 times* LANCETS Test blood sugar(s) 1- 2 times* METFORMIN ER 500 MG TABLET,EX* Take 1 tablet by mouth twice * LISINOPRIL 5 MG TABLET Take 1 tablet by mouth once d* COMPOUNDED PRESCRIPTION Referral to [facility] for* Problem List As Of Date 09/25/2017 Noted Resolved Asthma [J45.909] INVALID FOR* More... Allergic rhinitis [J30.9] INVALID FOR* More... Environmental and seasonal allergies [J30.89] Obesity, Class III, BMI >= 40 (morbid obesity) *INVALID FOR* Diabetes mellitus, type II (HCC) [E11.9] Hyperlipidemia [E78.5] Prescriptions ordered this encounter Disp Refills Start End ALBUTEROL SULFATE HFA 90 MCG/ACTUATI* 1 In* 09/25/2017 Route: INHALATION Sig: Inhale 2 Puffs as instructed every 6 hours as needed for Wheezing/Shortness of Breath. BLOOD-GLUCOSE METER KIT 1 Ea* 0 09/25/2017 Sig: Glucose Meter of Choice - Kit - Dx: Type 2 DM - Uncontrolled E11.65 BLOOD SUGAR DIAGNOSTIC STRIPS 50 S* 09/25/2017 Sig: Test blood sugar(s) 1-2 times daily. Dx: Type 2 DM - Uncontrolled E11.65 Insulin: No LANCETS 100 * 09/25/2017 Sig: Test blood sugar(s) 1-2 times daily. Dx: Type 2 DM - Uncontrolled E11.65 Insulin: No METFORMIN ER 500 MG TABLET,EXTENDED * 60 t* 09/25/2017 Route: ORAL Sig: Take 1 tablet by mouth twice daily before meals. LISINOPRIL 5 MG TABLET 30 t* 5 09/25/2017 Route: ORAL Sig: Take 1 tablet by mouth once daily. Medications Discontinued During This Encounter albuterol HFA (PROVENTIL HFA, VENTOL* 1 In* 5 03/22/2017 09/25/2017 Route: INHALATION Sig: Inhale 2 Puffs as instructed every 6 hours as needed for Wheezing/Shortness of Breath. Disc: Reason for discontinue is not on file. metFORMIN (GLUCOPHAGE) 500 mg tablet 60 t* 5 03/23/2017 09/25/2017 Route: ORAL Sig: Take 1 tablet by mouth twice daily with meals. . Disc: Reason for discontinue is not on file. Disposition: Return in about 3 months (around 12/26/2017). Follow-up and Disposition History Recorded Encounter Status:Closed by MARLA NAJERA MD on 09/25/17 PROGRESS Observed: 09/25/2017 Status: COMPLETED Source: [place] 5:56 PM [facility] [place] REPOSITORY O ID: [id number] Author: Marla Ahmadi) Reinaldo Service: (none) Author Type: Physician Type: Progress Notes Filed: 09/25/2017 6:34 PM Note Text: Chief Complaint Patient presents with: 6 Month Exam HPI Guera Fragoso is a 31 year old male who presents here today for 6 month follow up new finding of diabetes mellitus type II. DIABETES MELLITUS: Mr. Fragoso was last seen 6 months ago. Stopped taking metformin because it was causing blurred vision and thinks that it dropped his blood sugar too low. Discussed that metformin does not typically cause hypoglycemia, may have been his body adjusting to normal glucose levels. Since our last visit he denies excessive thirst or increased frequency of urination and numbness, tingling or pain in extremities. Follows a diabetic diet generally not very much. He is not compliant with medication(s) due to side effects of blurred vision. He reports checking his glucose on a infrequent to not at all basis. Patient's last HgA1C was Hemoglobin A1C (%) Date Value 03/22/2017 7.4 ) Last Ophthalmology exam was within the 3 months and was normal. Last Podiatry exam was within the past 3 months Discussed starting VERN inhibitor for renal protection. Requesting refill on albuterol inhaler. Taking dulera as prescribed for asthma and symptoms well controlled. Past medical history, appointments, medications, allergies reviewed. Previous Medical History PAST MEDICAL HISTORY Diagnosis Date - Allergic rhinitis - Asthma - Diabetes mellitus, type II (HCC) - Environmental and seasonal allergies - Hyperlipidemia - Morbid obesity (HCC) Previous Surgical History PAST SURGICAL HISTORY Procedure Laterality Date - NONE Family History FAMILY HISTORY Problem Relation Age of Onset - Asthma Father - Diabetes Father - Hypertension Mother - Thyroid Mother - Hyperlipidemia Mother - migraines [OTHER] Sister - Hypertension Brother - Hyperlipidemia Brother - Diabetes Paternal Grandmother - Alzheimer's Disease Paternal Grandmother - heart disease [OTHER] Paternal Grandmother - cva stroke [OTHER] Maternal Uncle - cva stroke [OTHER] Maternal Aunt Patient Allergies ALLERGIES Allergen Reactions - Amoxicillin Swelling Swelling of the tongue - Asa [Aspirin] Other: See Comments Triggers asthma - Ceclor [Cefaclor] Hives Current Medications Current Outpatient Prescriptions on File Prior to Visit: COMPOUNDED PRESCRIPTION Referral to [facility] for custom shoe orthotic assessmentPhone number [phone] code: E11.9 mometasone-formoterol (DULERA) 100-5 mcg/actuation inhaler Inhale 2 Puffs as instructed twice daily. atorvastatin (LIPITOR) 40 mg tablet Take 1 tablet by mouth daily at bedtime. For cholesterol. metFORMIN (GLUCOPHAGE) 500 mg tablet Take 1 tablet by mouth twice daily with meals. . albuterol HFA (PROVENTIL HFA, VENTOLIN HFA) 90 mcg/actuation inhaler Inhale 2 Puffs as instructed every 6 hours as needed for Wheezing/Shortness of Breath. No current facility-administered medications on file prior to visit. Social History Social History Marital status: Single Spouse name: Years of education: Number of children: Social History Main Topics Smoking status: Never Smoker Smokeless tobacco: Former User Types: Chew Comment: use of cigarettes and chew for a week at age 16 Alcohol use: Yes Comment: rare Drug use: No Sexual activity: Yes Partners with: Female Comment: No use of protection Other Topics Concern Caffeine Concern Yes Comment:2-3 pops Social History Narrative Lives with girlfriend. Feels safe at home. Review of Symptoms REVIEW OF SYSTEMS GENERAL: No weight loss, malaise or fevers RESPIRATORY: Negative for cough, hemoptysis, wheezing, COPD, dyspnea or shortness of breath CARDIOVASCULAR: Negative for chest pain, leg swelling, hypertension, CHF or palpitations GI: No nausea, vomiting, or diarrhea SKIN: Negative for lesions, rash, and itching EXAM: BP 136/86 Pulse 80 Resp 18 Wt (!) 162.8 kg (359 lb) BMI 48.69 kg/m? General Appearance: Well appearing, alert, in no acute distress, well-hydrated, well nourished.. Skin: Skin color, texture, turgor normal, no suspicious rashes or lesions. Lungs: Lungs clear to auscultation. No wheezing, rhonchi, rales. Heart: RRR without murmur, gallop, or rubs. No ectopy. Abdomen: Abdomen soft, non-tender. Bowel sounds normal. No organomegaly. Small umbilical hernia, non tender to palpation. Extremities: No deformities, edema, skin discoloration, clubbing or cyanosis. Good capillary refill. . Health Maintenance List DTAP,TDAP,TD(1 - Tdap) due on 11/08/2002 HBA1C due on 09/19/2017 INFLUENZA(1) due on 11/17/2017 LDL due on 03/22/2018 URINE ALBUMIN CREATININE RATIO due on 06/28/2018 DIABETIC FOOT EXAM due on 06/28/2018 DILATED RETINAL EXAM due on 07/10/2018 ONE PNEUMOVAX PRIOR TO AGE 65 Completed Data reviewed Component Latest Ref Rng AND Units 03/22/2017 06/28/2017 Protein, Total 6.3 - 8.0 g/dL 8.2 (H) Albumin 3.9 - 4.9 g/dL 4.4 Calcium 8.5 - 10.2 mg/dL 9.6 Bilirubin, Total 0.2 - 1.3 mg/dL 0.3 Alkaline Phosphatase 36 - 108 U/L 64 AST 14 - 40 U/L 26 Glucose 74 - 99 mg/dL 119 (H) BUN 9 - 24 mg/dL 11 Creatinine 0.73 - 1.22 mg/dL 0.88 Sodium 136 - 144 mmol/L 138 Potassium 3.7 - 5.1 mmol/L 4.2 Chloride 97 - 105 mmol/L 98 CO2 22 - 30 mmol/L 20 (L) Anion Gap 9 - 18 mmol/L 20 (H) ALT 10 - 54 U/L 39 eGFR- >60 eGFR-All Other Races . >60 WBC 3.70 - 11.00 k/uL 10.52 RBC 4.20 - 6.00 m/uL 5.32 Hemoglobin 13.0 - 17.0 g/dL 15.1 Hematocrit 39.0 - 51.0 % 48.0 MCV 80.0 - 100.0 fL 90.2 MCH 26.0 - 34.0 pG 28.4 MCHC 30.5 - 36.0 g/dL 31.5 RDW-CV 11.5 - 15.0 % 13.3 Platelet Count 150 - 400 k/uL 319 MPV 9.0 - 12.7 fL 11.0 Absolute nRBC <0.01 k/uL <0.01 Triglyceride 30 - 149 mg/dL 164 (H) Cholesterol, Total 100 - 199 mg/dL 260 (H) HDL Cholesterol >45 mg/dL 36 (L) VLDL Cholesterol 6 - 40 mg/dL 33 LDL Cholesterol 60 - 129 mg/dL 191 (H) Fasting Time hrs 16 TC:HDL Ratio 1.00 - 5.00 7.22 (H) LDL:HDL Ratio 0.50 - 3.55 5.31 (H) Non HDL Cholesterol 90 - 159 mg/dL 224 (H) Creatinine, Ur Random (UCRR) 20 - 300 mg/dL 175.4 Albumin, Urine Random 0.0 - 23.0 mg/L 20.4 Albumin/Creat Ratio 0 - 30 mg/g 12 Hemoglobin A1C 4.3 - 5.6 % 7.4 (H) Estimated Average Glucose mg/dL 166 ASSESSMENT/PLAN: 1. Type 2 diabetes mellitus without complication, without long-term current use of insulin ([facility]) - ICD9: 250.00, ICD10: E11.9 (primary diagnosis) uncontrolled - Add Metformin XR BID - Blood glucose monitoring on a twice a day schedule - Encouraged regular aerobic exercise and weight loss - Follow up in 3 months, sooner should any other issues arise. - Discussed diabetic education issues of assisted diabetic complications, hypoglycemic symptoms, hyperglycemic symptoms, diet, medications- side effects and need for compliance, importance of exercise and importance of annual examinations with Opthalmology with patient. - BLOOD-GLUCOSE METER KIT - BLOOD SUGAR DIAGNOSTIC STRIPS - LANCETS - METFORMIN ER 500 MG TABLET,EXTENDED RELEASE 24 HR - LISINOPRIL 5 MG TABLET - COMP METABOLIC PANEL - HGB A1C 2. Moderate persistent asthma without complication - ICD9: 493.90, ICD10: J45.40 Moderate persistent Asthma stable - Continue current meds - Avoidance of triggers recommended - ALBUTEROL SULFATE HFA 90 MCG/ACTUATION AEROSOL INHALER 3. Mixed hyperlipidemia - ICD9: 272.2, ICD10: E78.2 - Continue current medication. - Encouraged following a low fat, low cholesterol diet. - Discussed the benefits of regular aerobic exercise and weight loss. 4. Obesity, Class III, BMI >= 40 (morbid obesity) E66.01 - ICD9: 278.01, ICD10: E66.01 Weight unchanged in 6 months. Advised improved diet, regular exercise. Will recheck in 3 months and discuss further. Marla Najera MD [facility] Observed: 09/11/2017 Status: COMPLETED Source: [place] 12:00 AM [facility] REPOSITORY Patient Outreach (FAMPST) GUERA FRAGOSO ([id number]) 1985 M Date Time Provider Department 09/11/17 MAR[facility]ERA) [facility] During your visit today, we recorded the following information about you: Allergies As of Date: 09/11/2017 Noted Allergy Reaction AMOXICILLIN 2016 7 - Swelling Comments: Swelling of the tongue ASA (ASPIRIN) 04/27/2014 14 - Other: See Comments Comments: Triggers asthma CECLOR (CEFACLOR) 04/27/2014 4 - Hives Date Reviewed: 06/28/2017 Reviewed by: Karime Sutton (Donna) DONNA Li - Fully Assessed Visit Diagnosis:Medication management [Z79.899] Order(s):HGB A1C [EFKQU8O] Order #: [id number] FUTURE Prescriptions as of 09/11/2017 Sig: COMPOUNDED PRESCRIPTION Referral to [facility] for* X MOMETASONE-FORMOTEROL HFA 100* Inhale 2 Puffs as instructed * X ATORVASTATIN 40 MG TABLET Take 1 tablet by mouth daily * X METFORMIN 500 MG TABLET Take 1 tablet by mouth twice * X ALBUTEROL SULFATE HFA 90 MCG/* Inhale 2 Puffs as instructed * Problem List As Of Date 09/11/2017 Noted Resolved Asthma [J45.909] INVALID FOR* More... Allergic rhinitis [J30.9] INVALID FOR* More... Environmental and seasonal allergies [J30.89] Obesity, Class III, BMI >= 40 (morbid obesity) *INVALID FOR* Diabetes mellitus, type II (HCC) [E11.9] Hyperlipidemia [E78.5] Encounter Status:Closed by [place] AventuraUSEStewart on 12/28/17 ALBUMIN/CREAT RATIO Collected: 06/28/2017 Status: F Source: [place] 10:02 AM [facility] REPOSITORY TYPE CODE TESTS RESULT OUT OF REFERENCE UNITS RANGE LAB UCRR 20-300 mg/dL Creatinine,Ur 175.4 ine,Ran LAB UALBR 0.0-23.0 mg/L Albumin Urine 20.4 Random LAB UALBCR 0-30 mg/g Albumin/Creat 12 Ratio Result Comment: 30 to 300 mg/g indicates an increased risk for diabetic nephropathy. Greater than 300 mg/g is consistent with clinical nephropathy. (Am J Kidney Disease 1995, 25:107) Performed By: #### UACR #### [facility] [address] [place], [place] [address] CNOV Observed: 06/28/2017 Status: COMPLETED Source: [place] 9:00 AM [facility] REPOSITORY Office Visit (FAMPWS) GUERA FRAGOSO ([id number]) 1985 M Date Time Provider Department 06/28/17 9:00 AM AMY MILLER ([facility]) FAMPWS During your visit today, we recorded the following information about you: Pulse Respiration Blood pressure Weight 72/minute 18/minute 140/72 159.7 kg Amy Miller, ROZ.FERNIE 06/28/2017 3:52 PM Signed 06/28/2017 Patient presents with: Pain: taras feet pain burning and in taras upper legs around knees SUBJECTIVE: This is a 31 year old that is here today for Above Complaints. ONSET: Legs about 1 year. Feet started just recently after retuning to work a month ago. LOCATION: Above right knee. Left lateral quad. Left foot- ball of foot and left lateral foot. Right foot across the top and and lateral aspect DURATION: intermittnet CHARACTERISTICS: Feet: aching- currently not aching. Right knee: stinging burning- currently not hurting. Left Quad: feels numb at times- not currently ALLEVIATING FEATURES: When he removes work boots- it takes a couple of hours before I feel better. Has used tylenol 100 mg daily occasional which helps some AGGRAVATING FEATURES: When up on feet for long periods RADIATION: as above TIMING: when been on feet for a long time. No pain upon waking in the morning and does not awaken him form sleep Denies numbness and tingling in bilateral feet. Denies leg weakness PAST MEDICAL HISTORY Diagnosis Date - Allergic rhinitis - Asthma - Diabetes mellitus, type II (HCC) - Environmental and seasonal allergies - Hyperlipidemia - Morbid obesity (HCC) ALLERGIES Amoxicillin; Asa [Aspirin]; Ceclor [Cefaclor] MEDICATIONS Current Outpatient Prescriptions: mometasone-formoterol (DULERA) 100-5 mcg/actuation inhaler Inhale 2 Puffs as instructed twice daily. atorvastatin (LIPITOR) 40 mg tablet Take 1 tablet by mouth daily at bedtime. For cholesterol. metFORMIN (GLUCOPHAGE) 500 mg tablet Take 1 tablet by mouth twice daily with meals. . albuterol HFA (PROVENTIL HFA, VENTOLIN HFA) 90 mcg/actuation inhaler Inhale 2 Puffs as instructed every 6 hours as needed for Wheezing/Shortness of Breath. No current facility-administered medications for this visit. Medications and allergies reviewed by this provider. SOCIAL HISTORY Social History Marital status: Single Spouse name: Years of education: Number of children: Social History Main Topics Smoking status: Never Smoker Smokeless status: Former User Types: Chew Comment: use of cigarettes and chew for a week at age 16 Alcohol use: Yes Comment: rare Drug use: No Sexual activity: Yes Partners with: Female Comment: No use of protection Other Topics Concern Caffeine Concern Yes Comment:2-3 pops Social History Narrative Lives with girlfriend. Feels safe at home. REVIEW OF SYSTEMS GENERAL: No weight loss, malaise or fevers MUSCULOSKELETAL: Negative for joint pain or swelling and back pain SKIN: Negative for lesions, rash, and itching All other reviewed and negative other than HPI. OBJECTIVE: BP 140/72 (BP Site: Left Arm, BP Position: Sitting, BP Cuff Size: Large Adult) Pulse 72 Resp 18 Wt (!) 159.7 kg (352 lb 1.3 oz) BMI 47.75 kg/m2. Vital signs reviewed by this provider. APPEARANCE Well appearing, alert, in no acute distress, well- hydrated, well nourished., Morbidly obese EXTREMITIES Extremities normal, No deformities, No skin discoloration, No edema and Normal pulses bilaterally. SKIN Skin color, texture, turgor normal, no suspicious rashes or lesions Bilateral knee : without pain, swelling, redness, drainage, painful movement, loss of ROM, stiffness, injury, effusion and numbness. Normal sensation of upper and lower legs bilaterally. Reflexes symmetrical and 2/4. Strength normal 5/5 bilaterally Bowen negative Quan negative Anterior Drawer negative Posterior Drawer negative. ROM: full Bilateral foot: without pain, swelling, redness, drainage, painful movement, loss of ROM, stiffness, injury, effusion and numbness. of the calcaneus, heel, midfoot, dorsum, plantar and arch. ROM: dorsiflexion; right normal, left normal plantarflexion; right normal, left normal Feet: Shoes and socks removed, No deformities, ulcers, calluses, normal distal pulses and sensitive to 10 gm monofilament ASSESSMENT/PLAN: 1. Foot pain, bilateral - ICD9: 729.5, ICD10: M79.671, M79.672 (primary diagnosis) - consider poor arch support ,possibly d/t obesity- less likely plantar fascitis - d/t symptoms just starting when returned to week most likely related to poor arch support in shoes. - no red flag exam findings - red flag symptoms discussed, verbalizes understanding - may use OTC tylenol or aleve - ice or heat as needed - consult to PT for custom in shoe orthotics assessment - if developing burning and a tingling of feet consider gabapentin for diabetic neuropathy - follow-up if persisting or worsening 2. Acute pain of both knees - ICD9: 338.19, 719.46, ICD10: M25.561, M25.562 - consider obesity related,poor arch support - no red flag exam findings - red flag symptoms discussed - discussed losing weight to help with joint load - PT consult as above - Tylenol or aleve OTC for pain - heat or ice as needed - follow-up if worsening or persisting 3. Type 2 diabetes mellitus without complication, without long-term current use of insulin (HCC) - ICD9: 250.00, ICD10: E11.9 newly diagnosed - Continue current medications - Ophthalmology referral for eval/management of diabetic eye changes - Encouraged regular aerobic exercise and weight loss - Daily Asprin therapy recommended - BP goal of ANDlt;130/80 - LDL goal of ANDlt;100 - ALBUMIN/CREAT RATIO RND UR - keep follow-up in September with Dr. Najera- HBA1c prior to appointment 4. Obesity, Class III, BMI ANDgt;= 40 (morbid obesity) E66.01 - ICD9: 278.01, ICD10: E66.01 -- Lengthy discussion in office today regarding diet and exercise. Discussed use of small plate to eat meals from, drink 1 glass of water 10-15 minutes prior to eating meal, drink 8 glasses of water daily, eat fresh fruit and vegetable during meal first then lean protein such as grilled/baked chicken breast or fish, limit carbohydrate intake (less pasta, breads, rice and snack foods) as well as limiting sugars (desserts etc). Important to count / track your calories and exercise as well. Amy Podlogar, CAPTAIN ROOM SERVICE.MAXILLOFACIAL PROSTHETICS DENTIST Prescription instructions reviewed with patient as applicable. Patient advised if symptoms do not improve or if symptoms worsen sooner, to contact their primary care physician. Potential red flag symptoms discussed with the patient. Reviewed appropriate action plan to take if red flag symptoms occur. Patient agreeable to treatment plan. During this patient visit I have spent approximately 25 minutes in counseling regarding weight loss, exercise, cardiovascular risk reduction, treatment options and coordinating care and coordinating care. Referring Provider: SELF [[id number]] Allergies As of Date: 06/28/2017 Noted Allergy Reaction AMOXICILLIN 2016 7 - Swelling Comments: Swelling of the tongue ASA (ASPIRIN) 04/27/2014 14 - Other: See Comments Comments: Triggers asthma CECLOR (CEFACLOR) 04/27/2014 4 - Hives Date Reviewed: 06/28/2017 Reviewed by: Karime Felix LPN - Fully Assessed Reason for Visit: Pain [78] Cmt: taras feet pain burning and in taras upper legs around knees Primary Visit Diagnosis:Foot pain, bilateral [M79.671, M79.672] Other Visit Diagnoses:Acute pain of both knees [M25.561, M25.562] Type 2 diabetes mellitus without complication, without long-term current use of insulin (HCC) [E11.9] Obesity, Class III, BMI >= 40 (morbid obesity) E66.01 [E66.01] Order(s):ALBUMIN/CREAT RATIO RND UR [SQUACR] Order #: [id number] FUTURE COMPOUNDED PRESCRIPTIONReferral to [facility] Phone number [phone] ICD code: E11.9Disp: 1 EachRfl: 0 Prescriptions as of 06/28/2017 Sig: MOMETASONE-FORMOTEROL HFA 100* Inhale 2 Puffs as instructed * ATORVASTATIN 40 MG TABLET Take 1 tablet by mouth daily * METFORMIN 500 MG TABLET Take 1 tablet by mouth twice * ALBUTEROL SULFATE HFA 90 MCG/* Inhale 2 Puffs as instructed * COMPOUNDED PRESCRIPTION Referral to [facility] for* Problem List As Of Date 06/28/2017 Noted Resolved Asthma [J45.909] INVALID FOR* More... Allergic rhinitis [J30.9] INVALID FOR* More... Environmental and seasonal allergies [J30.89] Obesity, Class III, BMI >= 40 (morbid obesity) *INVALID FOR* Diabetes mellitus, type II (HCC) [E11.9] Hyperlipidemia [E78.5] Prescriptions ordered this encounter Disp Refills Start End COMPOUNDED PRESCRIPTION 1 Ea* 0 06/28/2017 Class: Print RX Sig: Referral to [facility] for custom shoe orthotic assessment Phone number [phone] ICD code: E11.9 Follow-up and Disposition History Recorded Encounter Status:Closed by AMY MILLER CNP on 06/28/17 PROGRESS Observed: 06/28/2017 Status: COMPLETED Source: [place] 8:59 AM [facility] REPOSITORY HNO ID: [id number] Author: Amy Lai) Podlogar Service: (none) Author Type: Nurse Practitioner Type: Progress Notes Filed: 06/28/2017 3:52 PM Note Text: 06/28/2017 Patient presents with: Pain: taras feet pain burning and in taras upper legs around knees SUBJECTIVE: This is a 31 year old that is here today for Above Complaints. ONSET: Legs about 1 year. Feet started just recently after retuning to work a month ago. LOCATION: Above right knee. Left lateral quad. Left foot- ball of foot and left lateral foot. Right foot across the top and and lateral aspect DURATION: intermittnet CHARACTERISTICS: Feet: aching- currently not aching. Right knee: stinging burning- currently not hurting. Left Quad: feels numb at times- not currently ALLEVIATING FEATURES: When he removes work boots- it takes a couple of hours before I feel better. Has used tylenol 100 mg daily occasional which helps some AGGRAVATING FEATURES: When up on feet for long periods RADIATION: as above TIMING: when been on feet for a long time. No pain upon waking in the morning and does not awaken him form sleep Denies numbness and tingling in bilateral feet. Denies leg weakness PAST MEDICAL HISTORY Diagnosis Date - Allergic rhinitis - Asthma - Diabetes mellitus, type II (HCC) - Environmental and seasonal allergies - Hyperlipidemia - Morbid obesity (HCC) ALLERGIES Amoxicillin; Asa [Aspirin]; Ceclor [Cefaclor] MEDICATIONS Current Outpatient Prescriptions: mometasone-formoterol (DULERA) 100-5 mcg/actuation inhaler Inhale 2 Puffs as instructed twice daily. atorvastatin (LIPITOR) 40 mg tablet Take 1 tablet by mouth daily at bedtime. For cholesterol. metFORMIN (GLUCOPHAGE) 500 mg tablet Take 1 tablet by mouth twice daily with meals. . albuterol HFA (PROVENTIL HFA, VENTOLIN HFA) 90 mcg/actuation inhaler Inhale 2 Puffs as instructed every 6 hours as needed for Wheezing/Shortness of Breath. No current facility-administered medications for this visit. Medications and allergies reviewed by this provider. SOCIAL HISTORY Social History Marital status: Single Spouse name: Years of education: Number of children: Social History Main Topics Smoking status: Never Smoker Smokeless status: Former User Types: Chew Comment: use of cigarettes and chew for a week at age 16 Alcohol use: Yes Comment: rare Drug use: No Sexual activity: Yes Partners with: Female Comment: No use of protection Other Topics Concern Caffeine Concern Yes Comment:2-3 pops Social History Narrative Lives with girlfriend. Feels safe at home. REVIEW OF SYSTEMS GENERAL: No weight loss, malaise or fevers MUSCULOSKELETAL: Negative for joint pain or swelling and back pain SKIN: Negative for lesions, rash, and itching All other reviewed and negative other than HPI. OBJECTIVE: BP 140/72 (BP Site: Left Arm, BP Position: Sitting, BP Cuff Size: Large Adult) Pulse 72 Resp 18 Wt (!) 159.7 kg (352 lb 1.3 oz) BMI 47.75 kg/m2. Vital signs reviewed by this provider. APPEARANCE Well appearing, alert, in no acute distress, well-hydrated, well nourished., Morbidly obese EXTREMITIES Extremities normal, No deformities, No skin discoloration, No edema and Normal pulses bilaterally. SKIN Skin color, texture, turgor normal, no suspicious rashes or lesions Bilateral knee : without pain, swelling, redness, drainage, painful movement, loss of ROM, stiffness, injury, effusion and numbness. Normal sensation of upper and lower legs bilaterally. Reflexes symmetrical and 2/4. Strength normal 5/5 bilaterally Bowen negative Quan negative Anterior Drawer negative Posterior Drawer negative. ROM: full Bilateral foot: without pain, swelling, redness, drainage, painful movement, loss of ROM, stiffness, injury, effusion and numbness. of the calcaneus, heel, midfoot, dorsum, plantar and arch. ROM: dorsiflexion; right normal, left normal plantarflexion; right normal, left normal Feet: Shoes and socks removed, No deformities, ulcers, calluses, normal distal pulses and sensitive to 10 gm monofilament ASSESSMENT/PLAN: 1. Foot pain, bilateral - ICD9: 729.5, ICD10: M79.671, M79.672 (primary diagnosis) - consider poor arch support ,possibly d/t obesity- less likely plantar fascitis - d/t symptoms just starting when returned to week most likely related to poor arch support in shoes. - no red flag exam findings - red flag symptoms discussed, verbalizes understanding - may use OTC tylenol or aleve - ice or heat as needed - consult to PT for custom in shoe orthotics assessment - if developing burning and a tingling of feet consider gabapentin for diabetic neuropathy - follow-up if persisting or worsening 2. Acute pain of both knees - ICD9: 338.19, 719.46, ICD10: M25.561, M25.562 - consider obesity related,poor arch support - no red flag exam findings - red flag symptoms discussed - discussed losing weight to help with joint load - PT consult as above - Tylenol or aleve OTC for pain - heat or ice as needed - follow-up if worsening or persisting 3. Type 2 diabetes mellitus without complication, without long-term current use of insulin (HCC) - ICD9: 250.00, ICD10: E11.9 newly diagnosed - Continue current medications - Ophthalmology referral for eval/management of diabetic eye changes - Encouraged regular aerobic exercise and weight loss - Daily Asprin therapy recommended - BP goal of <130/80 - LDL goal of <100 - ALBUMIN/CREAT RATIO RND UR - keep follow-up in September with Dr. Najera- HBA1c prior to appointment 4. Obesity, Class III, BMI >= 40 (morbid obesity) E66.01 - ICD9: 278.01, ICD10: E66.01 -- Lengthy discussion in office today regarding diet and exercise. Discussed use of small plate to eat meals from, drink 1 glass of water 10-15 minutes prior to eating meal, drink 8 glasses of water daily, eat fresh fruit and vegetable during meal first then lean protein such as grilled/baked chicken breast or fish, limit carbohydrate intake (less pasta, breads, rice and snack foods) as well as limiting sugars (desserts etc). Important to count / track your calories and exercise as well. Amy Podlogar, CAPTAIN ROOM SERVICE.MAXILLOFACIAL PROSTHETICS DENTIST Prescription instructions reviewed with patient as applicable. Patient advised if symptoms do not improve or if symptoms worsen sooner, to contact their primary care physician. Potential red flag symptoms discussed with the patient. Reviewed appropriate action plan to take if red flag symptoms occur. Patient agreeable to treatment plan. During this patient visit I have spent approximately 25 minutes in counseling regarding weight loss, exercise, cardiovascular risk reduction, treatment options and coordinating care and coordinating care. URGENT CARE VISIT Observed: 05/31/2017 Status: F Source: [place] REPORT 12:37 PM [facility] REPOSITORY Now [address] [address] OFFICE VISIT Date of Service: 05/31/17 MR#: [id number] Acct: [id number] Name: GUERA FRAGOSO Rep #: [id number] : 1985 Provider: Parish DAVIS Age/Sex: 31/M Location: [facility] Status: Signed Intake Vital Signs05/31/17 Height 6 ft 1 in Intake Visit Reasons: SINUS INFECTION Chief Complaint: Sinus congestion Is patient in pain?: No Allergies amoxicillin Allergy (Verified 05/31/17 12:28) Swelling cefaclor [From Ceclor] Allergy (Verified 05/31/17 12:28) Hives aspirin Adverse Reaction (Verified 05/31/17 12:28) Unknown Medications Albuterol Inhaler [Ventolin Hfa (SP)] 1 - 2 puff INHALATION Q4H PRN PRN 09/03/15 [History Confirmed 05/31/17] Albuterol Inhaler [Ventolin Hfa] 1 - 2 puff INHALATION Q4H PRN PRN #1 inhaler 09/03/15 [Rx Confirmed 05/31/17] atorvastatin 40 mg tablet PO 30 Days #30 05/31/17 [History Confirmed 05/31/17] metformin 500 mg tablet PO 30 Days #60 05/31/17 [History Confirmed 05/31/17] PFSH Medical History Asthma (Acute) Diabetes (Acute) SOB (shortness of breath) (Acute) Family History Father Asthma Diabetes Social History Smoking Status: Never smoker alcohol intake: never HPI HPI Chief Complaint: Sinus congestion Details: GUERA FRAGOSO, is a 31 M who presents to the office today for initial evaluation approximately 24 hour history of sinus congestion and postnasal drip. Patient notes symptoms began yesterday evening stating his girlfriend he lives with his has similar symptoms. Patient notes no complaints of fever, chills, sweats, rash, chest pain/shortness of breath, or cough he is a non-smoker. He has been particularly concerned because he is starting a new job tomorrow and does not want to be sick while at work. He notes no other associated symptoms and no other alleviating or aggravating factors ROS Const Constitutional: No excessive sweating, chills, fever(s), night sweats or body ache Eyes Eyes: No change in vision ENT ENT: Positive for post nasal drip, sinus pressure and sinus pain; no abnormal hearing, ear pain, ear discharge, ear pressure, hearing loss, nasal congestion or sore throat Resp Respiratory: No cough or chest congestion Cardio Cardiology: No excessive sweating, chest pain at rest, chest pain with exertion, shortness of breath, dyspnea on exertion, irregular heart rhythm, generalized swelling or leg pain with exertion Gastro GI: No abdominal pain, change in stool character or change in bowel habits Musc Musculoskeletal: No back pain Skin Skin: No rash Neuro Neurology: No abnormal hearing Psych Psychiatric: No anxiety Endo Endocrine: No excessive sweating or change in body appearance Aller/Imm Allergy/Immunologic: No food intolerance Alvarez/Lymp Hematologic/Lymphatic: No easy bruising Exam Const General: cooperative, healthy appearing, no acute distress, comfortable Nutritional Appearance: average body habitus, obese Orientation: alert, awake, oriented x3 HENMT Head: normal to inspection Ears: hearing grossly normal bilaterally, external ears normal, TM's normal bilaterally, EAC's normal Nose: external nose normal, nares normal, septum normal, no nasal discharge Face and sinus: normal facial exam, face symmetric, sinus tenderness (Mild bilateral) maxillary, sinuses nontender Mouth: oral mucosae normal, lip normal, oropharynx normal, tongue normal Teeth and gingiva: dentition normal, gingiva normal Throat: uvula midline, tonsils normal, posterior oropharynx normal, postnasal drainage (Clear) Eyes General: appearance normal, both eyes and all related structures Neck Neck: normal visual inspection, full ROM, no lymphadenopathy, no meningeal signs, supple Neck mass: No Thyroid: thyroid normal Lymphatic: no lymphadenopathy noted Chest Chest palpation AND inspection: normal inspection of the chest Resp Effort AND Inspection: normal respiratory effort, able to speak in complete sentences, symmetric chest movement, no cough Auscultation: Bilateral: Clear to Auscultation Cardio Palpation: normal PMI Rate: regular rate Rhythm: regular rhythm Heart Sounds: S1 normal, S2 normal, no gallops, no murmurs, no rubs Pulses: radial pulses present GI Inspection: normal to inspection Palpation: soft Skin General: no rashes or lesions noted Neuro General: alert, awake, oriented x3, gait normal Cognition: normal cognition Speech: speech normal Gait: normal gait Motor: muscle tone normal throughout Sensory Exam: no sensory deficits noted Extrem General: normal to inspection Psych Appearance: grossly normal Mental Status: mental status grossly normal Mood: congruent mood Affect: normal affect Speech and Movement: speech and movement normal Attitude: cooperative Thought Process: normal Thought Content: normal Judgment: judgment good Assessment AND Plan Problems 1. URI (upper respiratory infection) J06.9 Plan Clear fluids, rest, Tylenol as needed for symptomatic relief. Continue current medical regimen as instructed by primary care physician. Follow-up with PCP in 5 7 days should symptoms not improve, sooner should symptoms worsen or any other concerns develop. Patient states acknowledging understanding all the above. This note was generated with [email or web address] software. It may contain incorrect words, spelling, and punctuation that were not noted in checking the note before signing. Medications Discontinued: Coding Level of Care Code Off vis,new,level 3 Diagnoses URI (upper respiratory infection) J06.9 05/31/17 1237 <Electronically signed by Parish DAVIS> Date Parish DAVIS Cosigner Signature: Date (if applicable) CC: OBSOLETE Observed: 03/22/2017 Status: COMPLETED Source: [place] 12:30 PM [facility] REPOSITORY Procedure (PULMWS) GUERA FRAGOSO ([id number]) 1985 M Date Time Provider Department 03/22/17 12:30 PM RESPIRATORY THERAPIST [facility] During your visit today, we recorded the following information about you: Pulse Respiration Weight Height 92/minute 16/minute 163.3 kg 1.829 m Referring Provider: MARLA NAJERA) [[id number]] Allergies As of Date: 03/22/2017 Noted Allergy Reaction AMOXICILLIN 2016 7 - Swelling Comments: Swelling of the tongue ASA (ASPIRIN) 04/27/2014 14 - Other: See Comments Comments: Triggers asthma CECLOR (CEFACLOR) 04/27/2014 4 - Hives Date Reviewed: 03/22/2017 Reviewed by: Jesi ([id number]) Mita Santos - Fully Assessed Reason for Visit: Spirometry [191] Visit Diagnosis:Moderate persistent asthma without complication [J45.40] Order(s):SPIROMETRY - BASELINE AND POST DILATOR [[id number]] Order #: [id number] Prescriptions as of 03/22/2017 Sig: FEXOFENADINE 180 MG TABLET Take 1 tablet by mouth once d* ALBUTEROL SULFATE HFA 90 MCG/* Inhale 2 Puffs as instructed * FLUTICASONE 250 MCG-SALMETERO* Inhale 1 Puff as instructed t* Problem List As Of Date 03/22/2017 Noted Resolved Asthma [J45.909] INVALID FOR* More... Allergic rhinitis [J30.9] INVALID FOR* More... Environmental and seasonal allergies [J30.89] Obesity, Class III, BMI >= 40 (morbid obesity) *INVALID FOR* Encounter Status:Closed by JESI SANTOS RRT on 03/22/17 HEMOGLOBIN A1C Collected: 03/22/2017 Status: F Source: [place] 11:48 AM [facility] REPOSITORY TYPE CODE TESTS RESULT OUT OF REFERENCE UNITS RANGE LAB HGBA1C 4.3-5.6 % High Hemoglobin A1c 7.4 LAB HBA0 mg/dL Est. Average Glucose 166 Result Comment: eAG: (Estimated average glucose) is a calculated value from HgbA1c and is service representative of the average blood glucose level in the last 2-3 month period. Performed By: #### HBA1C, CBC, CMP, LIPB #### [facility] [address] [place], [place] [address] CBC Collected: 03/22/2017 Status: F Source: [place] 11:48 AM [facility] REPOSITORY TYPE CODE TESTS RESULT OUT OF REFERENCE UNITS RANGE LAB WBC 3.70-11.00 k/uL WBC 10.52 LAB RBC 4.20-6.00 m/uL RBC 5.32 LAB HGB 13.0-17.0 g/dL Hemoglobin 15.1 LAB HCT 39.0-51.0 % Hematocrit 48.0 LAB MCV 80.0-100.0 fL MCV 90.2 LAB MCH 26.0-34.0 pG MCH 28.4 LAB MCHC 30.5-36.0 g/dL MCHC 31.5 LAB RDWCV 11.5-15.0 % RDW-CV 13.3 LAB PLTCT 150-400 k/uL Platelet Count 319 LAB MPV 9.0-12.7 fL MPV 11.0 LAB ABSNUC <0.01 k/uL Absolute nRBC <0.01 Performed By: #### HBA1C, CBC, CMP, LIPB #### [facility] [address] [place], [place] [address] COMP METABOLIC PANEL Collected: 03/22/2017 Status: F Source: [place] 11:48 AM [facility] REPOSITORY TYPE CODE TESTS RESULT OUT OF REFERENCE UNITS RANGE LAB TP 6.3-8.0 g/dL Protein, High Total 8.2 LAB ALB 3.9-4.9 g/dL Albumin 4.4 LAB CA 8.5-10.2 mg/dL Calcium, Total 9.6 LAB TBIL 0.2-1.3 mg/dL Bilirubin, Total 0.3 LAB ALKP 36-108 U/L Alkaline Phosphatase 64 LAB AST 14-40 U/L AST 26 LAB GLU 74-99 mg/dL Glucose High 119 Result Comment: The [place] [employer] (ADA) provides guidance for cutoff values for fasting glucose and random glucose. The ADA defines fasting as no caloric intake for at least 8 hours. Fas ting plasma glucose results between 100 to 125 mg/dL indicate increased risk for diabetes (prediabetes). Fasting plasma glucose results greater than or equal to 126 mg/dL meet the criteria for diagnosis of diabetes. In the absence of unequivocal hyperglycemia, results should be confirmed by repeat testing. In a patient with classic symptoms of hyperglycemia or hyperglycemic crisis, random plasma glucose results greater than or equal to 200 mg/dL meet the criteria for diagnosis of diabetes. Reference: Standards of Medical Care in Diabetes 2016, [place] [employer]. Diabetes Care. 2016.39(Suppl 1). LAB BUN 9-24 mg/dL BUN 11 LAB CRET 0.73-1.22 mg/dL Creatinine 0.88 LAB NA 136-144 mmol/L Sodium 138 LAB K 3.7-5.1 mmol/L Potassium 4.2 LAB CL 97-105 mmol/L Chloride 98 LAB CO2 22-30 mmol/L Low CO2 20 LAB AGAP 9-18 mmol/L Anion Gap High 20 LAB ALT 10-54 U/L ALT 39 LAB GFRAA eGFR- Amer. >60 LAB GFRNAA . eGFR-All Other Races >60 Result Comment: eGFR (Estimated GFR) Units of measure: mL/min/1.73 meters squared eGFR is derived from the reexpressed MDRD Study equation using the following parameters: serum creatinine, age, gender and race. The creatinine assay has been calibrated to be traceable to IDMS. An eGFR <60 mL/min/1.73m2 for >3 months is consistent with chronic kidney disease. Refer to KDOQI guidelines for clinical interpretation. In patients with unstable renal function, e.g. those with acute kidney injury, the eGFR may not accurately reflect actual GFR. Performed By: #### HBA1C, CBC, CMP, LIPB #### [facility] [address], [place] [address] LIPID PANEL, BASIC Collected: 03/22/2017 Status: F Source: [place] 11:48 AM [facility] REPOSITORY TYPE CODE TESTS RESULT OUT OF REFERENCE UNITS RANGE LAB TRIGLY 30-149 mg/dL Triglyceride High 164 LAB CHOL 100-199 mg/dL Cholesterol High 260 LAB HDL >45 mg/dL Low HDL-Cholesterol 36 LAB VLDL 6-40 mg/dL VLDL Cholesterol 33 LAB LDL 60-129 mg/dL High LDL-Cholesterol 191 LAB FT hrs Fasting Time 16 LAB TCHDL 1.00-5.00 TC:HDL Ratio High 7.22 LAB LDLHDL 0.50-3.55 LDL:HDL Ratio High 5.31 LAB NONHDL 90-159 mg/dL Non HDL High Cholesterol 224 Performed By: #### HBA1C, CBC, CMP, LIPB #### [facility] [address], [place] [address] PROGRESS Observed: 03/22/2017 Status: COMPLETED Source: [place] 10:55 AM [facility] REPOSITORY HNO ID: [id number] Author: Marla Ahmadi) Reinaldo Service: (none) Author Type: Physician Type: Progress Notes Filed: 03/22/2017 12:01 PM Note Text: Chief Complaint Patient presents with: Establish Care HPI Guera Fragoso is a 31 year old male who presents here today for establish care visit. Was previously seeing PCP in [place] and last visit was 3-4 months. Needs refills on albuterol and jose today for asthma and environmental allergies. States that he would also like rx for advair which he has been given in the past. States that he typically uses albuterol >4 times per day, wakes up nightly and feels like he is SOB, so uses inhaler then. Has not had recent hospitalization for asthma and has not been on steroid in the past. Known triggers: change in weather, URI, allergies. Patient states that he has not had pneumovax in the past. Refusing flu shot and tdap today. Due for screening blood work. Past medical history, appointments, medications, allergies reviewed. Previous Medical History PAST MEDICAL HISTORY Diagnosis Date - Allergic rhinitis - Asthma - Environmental and seasonal allergies Previous Surgical History PAST SURGICAL HISTORY Procedure Laterality Date - NONE Family History FAMILY HISTORY Problem Relation Age of Onset - Asthma Father - Diabetes Father - Hypertension Mother - Thyroid Mother - Hyperlipidemia Mother - migraines [OTHER] Sister - Hypertension Brother - Hyperlipidemia Brother - Diabetes Paternal Grandmother - Alzheimer's Disease Paternal Grandmother - heart disease [OTHER] Paternal Grandmother - cva stroke [OTHER] Maternal Uncle - cva stroke [OTHER] Maternal Aunt Patient Allergies ALLERGIES Allergen Reactions - Amoxicillin Swelling Swelling of the tongue - Asa [Aspirin] Other: See Comments Triggers asthma - Ceclor [Cefaclor] Hives Current Medications Current Outpatient Prescriptions on File Prior to Visit: fexofenadine (JOSE ALLERGY) 180 mg tablet Take 180 mg by mouth once daily. Generic otc prn albuterol HFA (PROVENTIL HFA, VENTOLIN HFA) 90 mcg/actuation inhaler Inhale 2 Puffs as instructed every 6 hours as needed for Wheezing/Shortness of Breath. No current facility-administered medications on file prior to visit. Social History Social History Marital status: Single Spouse name: Years of education: Number of children: Social History Main Topics Smoking status: Never Smoker Smokeless status: Former User Alcohol use: Yes Comment: rare Drug use: No Sexual activity: Yes Partners with: Female Comment: No use of protection Other Topics Concern Caffeine Concern Yes Comment:2-3 pops Social History Narrative Lives with girlfriend. Feels safe at home. Review of Symptoms REVIEW OF SYSTEMS GENERAL: No weight loss, malaise or fevers NECK: Negative for lumps, goiter, pain and significant neck swelling RESPIRATORY: Dyspnea, Wheezing CARDIOVASCULAR: Negative for chest pain, leg swelling, hypertension, CHF or palpitations GI: No nausea, vomiting, or diarrhea SKIN: Negative for lesions, rash, and itching EXAM: BP 126/86 (BP Site: Left Arm, BP Position: Sitting, BP Cuff Size: Large Adult) Pulse 80 Resp 20 Ht 184 cm (6' 0.44) Wt (!) 163.3 kg (360 lb) BMI 48.23 kg/m2 General Appearance: Well appearing, alert, in no acute distress, well-hydrated, well nourished., Morbidly obese. Skin: Skin color, texture, turgor normal, no suspicious rashes or lesions. Lungs: Lungs clear to auscultation. No wheezing, rhonchi, rales. Heart: RRR without murmur, gallop, or rubs. No ectopy. Abdomen: Normal abdominal exam, Abdomen soft, non-tender. Bowel sounds normal. No masses, organomegaly. Extremities: No deformities, edema, skin discoloration, clubbing or cyanosis. Good capillary refill. . Health Maintenance List TETANUS due on 2026 ONE PNEUMOVAX PRIOR TO AGE 65 Completed INFLUENZA Completed ASSESSMENT/PLAN: 1. Moderate persistent asthma without complication - ICD9: 493.90, ICD10: J45.40 (primary diagnosis) Moderate persistent Asthma worse - Continue albuterol - Begin Advair: Advair 250/50 1 puff twice daily - Avoidance of triggers recommended - FEXOFENADINE 180 MG TABLET - ALBUTEROL SULFATE HFA 90 MCG/ACTUATION AEROSOL INHALER - SPIROMETRY - BASELINE AND POST DILATOR - FLUTICASONE 250 MCG-SALMETEROL 50 MCG/DOSE BLISTR POWDR FOR INHALATION 2. Allergic rhinitis, unspecified chronicity, unspecified seasonality, unspecified trigger - ICD9: 477.9, ICD10: J30.9 Will refill fexofenadine and discussed avoidance of triggers. 3. Environmental and seasonal allergies - ICD9: 477.8, ICD10: J30.89 Will refill fexofenadine and discussed avoidance of triggers. 4. Obesity, Class III, BMI >= 40 (morbid obesity) E66.01 - ICD9: 278.01, ICD10: E66.01 Discussed improved diet and exercise. - CBC - COMP METABOLIC PANEL - LIPID PANEL BASIC - HGB A1C 5. Need for vaccination - ICD9: V05.9, ICD10: Z23 - PNEUMOCOCCAL IMMUNIZATION PPSV 23 Marla Najera MD CNOV Observed: 03/22/2017 Status: COMPLETED Source: [place] 10:40 AM [facility] REPOSITORY Office Visit (FAMPWS) GUERA FRAGOSO ([id number]) 1985 M Date Time Provider Department 03/22/17 10:40 AM MARLA NAJERA) FAMPWS During your visit today, we recorded the following information about you: Pulse Respiration Blood pressure Weight 80/minute 20/minute 126/86 163.3 kg Height 1.84 m Marla Najera MD 03/22/2017 12:01 PM Signed Chief Complaint Patient presents with: Establish Care HPI Guera Fragoso is a 31 year old male who presents here today for establish [facility] visit. Was previously seeing PCP in [place] and last visit was 3-4 months. Needs refills on albuterol and jose today for asthma and environmental allergies. States that he would also like rx for advair which he has been given in the past. States that he typically uses albuterol ANDgt;4 times per day, wakes up nightly and feels like he is SOB, so uses inhaler then. Has not had recent hospitalization for asthma and has not been on steroid in the past. Known triggers: change in weather, URI, allergies. Patient states that he has not had pneumovax in the past. Refusing flu shot and tdap today. Due for screening blood work. Past medical history, appointments, medications, allergies reviewed. Previous Medical History PAST MEDICAL HISTORY Diagnosis Date - Allergic rhinitis - Asthma - Environmental and seasonal allergies Previous Surgical History PAST SURGICAL HISTORY Procedure Laterality Date - NONE Family History FAMILY HISTORY Problem Relation Age of Onset - Asthma Father - Diabetes Father - Hypertension Mother - Thyroid Mother - Hyperlipidemia Mother - migraines [OTHER] Sister - Hypertension Brother - Hyperlipidemia Brother - Diabetes Paternal Grandmother - Alzheimer's Disease Paternal Grandmother - heart disease [OTHER] Paternal Grandmother - cva stroke [OTHER] Maternal Uncle - cva stroke [OTHER] Maternal Aunt Patient Allergies ALLERGIES Allergen Reactions - Amoxicillin Swelling Swelling of the tongue - Asa [Aspirin] Other: See Comments Triggers asthma - Ceclor [Cefaclor] Hives Current Medications Current Outpatient Prescriptions on File Prior to Visit: fexofenadine (JOSE ALLERGY) 180 mg tablet Take 180 mg by mouth once daily. Generic otc prn albuterol HFA (PROVENTIL HFA, VENTOLIN HFA) 90 mcg/actuation inhaler Inhale 2 Puffs as instructed every 6 hours as needed for Wheezing/Shortness of Breath. No current facility-administered medications on file prior to visit. Social History Social History Marital status: Single Spouse name: Years of education: Number of children: Social History Main Topics Smoking status: Never Smoker Smokeless status: Former User Alcohol use: Yes Comment: rare Drug use: No Sexual activity: Yes Partners with: Female Comment: No use of protection Other Topics Concern Caffeine Concern Yes Comment:2-3 pops Social History Narrative Lives with girlfriend. Feels safe at home. Review of Symptoms REVIEW OF SYSTEMS GENERAL: No weight loss, malaise or fevers NECK: Negative for lumps, goiter, pain and significant neck swelling RESPIRATORY: Dyspnea, Wheezing CARDIOVASCULAR: Negative for chest pain, leg swelling, hypertension, CHF or palpitations GI: No nausea, vomiting, or diarrhea SKIN: Negative for lesions, rash, and itching EXAM: BP 126/86 (BP Site: Left Arm, BP Position: Sitting, BP Cuff Size: Large Adult) Pulse 80 Resp 20 Ht 184 cm (6' 0.44ANDquot;) Wt (!) 163.3 kg (360 lb) BMI 48.23 kg/m2 General Appearance: Well appearing, alert, in no acute distress, well-hydrated, well nourished., Morbidly obese. Skin: Skin color, texture, turgor normal, no suspicious rashes or lesions. Lungs: Lungs clear to auscultation. No wheezing, rhonchi, rales. Heart: RRR without murmur, gallop, or rubs. No ectopy. Abdomen: Normal abdominal exam, Abdomen soft, non-tender. Bowel sounds normal. No masses, organomegaly. Extremities: No deformities, edema, skin discoloration, clubbing or cyanosis. Good capillary refill. . Health Maintenance List TETANUS due on 2026 ONE PNEUMOVAX PRIOR TO AGE 63 Completed INFLUENZA Completed ASSESSMENT/PLAN: 1. Moderate persistent asthma without complication - ICD9: 493.90, ICD10: J45.40 (primary diagnosis) Moderate persistent Asthma worse - Continue albuterol - Begin Advair: Advair 250/50 1 puff twice daily - Avoidance of triggers recommended - FEXOFENADINE 180 MG TABLET - ALBUTEROL SULFATE HFA 90 MCG/ACTUATION AEROSOL INHALER - SPIROMETRY - BASELINE AND POST DILATOR - FLUTICASONE 250 MCG-SALMETEROL 50 MCG/DOSE BLISTR POWDR FOR INHALATION 2. Allergic rhinitis, unspecified chronicity, unspecified seasonality, unspecified trigger - ICD9: 477.9, ICD10: J30.9 Will refill fexofenadine and discussed avoidance of triggers. 3. Environmental and seasonal allergies - ICD9: 477.8, ICD10: J30.89 Will refill fexofenadine and discussed avoidance of triggers. 4. Obesity, Class III, BMI ANDgt;= 40 (morbid obesity) E66.01 - ICD9: 278.01, ICD10: E66.01 Discussed improved diet and exercise. - CBC - COMP METABOLIC PANEL - LIPID PANEL BASIC - HGB A1C 5. Need for vaccination - ICD9: V05.9, ICD10: Z23 - PNEUMOCOCCAL IMMUNIZATION PPSV 23 Marla Najera MD Referring Provider: SELF [200] Allergies As of Date: 03/22/2017 Noted Allergy Reaction AMOXICILLIN 2016 7 - Swelling Comments: Swelling of the tongue ASA (ASPIRIN) 04/27/2014 14 - Other: See Comments Comments: Triggers asthma CECLOR (CEFACLOR) 04/27/2014 4 - Hives Date Reviewed: 2016 Reviewed by: Sneha Ortiz - Fully Assessed Reason for Visit: Establish Care [42] Primary Visit Diagnosis:Moderate persistent asthma without complication [J45.40] Other Visit Diagnoses:Allergic rhinitis, unspecified chronicity, unspecified seasonality, unspecified trigger [J30.9] Environmental and seasonal allergies [J30.89] Obesity, Class III, BMI >= 40 (morbid obesity) E66.01 [E66.01] Need for vaccination [Z23] Order(s):PNEUMOCOCCAL IMMUNIZATION PPSV 23 [[id number]] Order #: [id number] fexofenadine (JOSE ALLERGY) 180 mg tabletTake 1 tablet by mouth once daily. Generic otc prnDisp: 30 tabletRfl: 5 albuterol HFA (PROVENTIL HFA, VENTOLIN HFA) 90 mcg/actuation inhalerInhale 2 Puffs as instructed every 6 hours as needed for Wheezing/Shortness of Breath.Disp: 1 InhalerRfl: 5 CBC [SQCBC] Order #: [id number] FUTURE COMP METABOLIC PANEL [SQCMP] Order #: [id number] FUTURE LIPID PANEL BASIC [SQLIPB] Order #: [id number] FUTURE HGB A1C [TVKGW8F] Order #: [id number] FUTURE SPIROMETRY - BASELINE AND POST DILATOR [[id number]] Order #: [id number] FUTURE fluticasone-salmeterol (ADVAIR DISKUS) 250-50 mcg/dose dsdvInhale 1 Puff as instructed twice daily. Rinse and gargle mouth after use with water.Disp: 1 InhalerRfl: 5 Prescriptions as of 03/22/2017 Sig: FEXOFENADINE 180 MG TABLET Take 1 tablet by mouth once d* ALBUTEROL SULFATE HFA 90 MCG/* Inhale 2 Puffs as instructed * FLUTICASONE 250 MCG-SALMETERO* Inhale 1 Puff as instructed t* Problem List As Of Date 03/22/2017 Noted Resolved Asthma [J45.909] INVALID FOR* More... Allergic rhinitis [J30.9] INVALID FOR* More... Environmental and seasonal allergies [J30.89] Obesity, Class III, BMI >= 40 (morbid obesity) *INVALID FOR* Prescriptions ordered this encounter Disp Refills Start End FEXOFENADINE 180 MG TABLET 30 t* 5 03/22/2017 04/21/2017 Route: ORAL Sig: Take 1 tablet by mouth once daily. Generic otc prn ALBUTEROL SULFATE HFA 90 MCG/ACTUATI* 1 In* 5 03/22/2017 Route: INHALATION Sig: Inhale 2 Puffs as instructed every 6 hours as needed for Wheezing/Shortness of Breath. FLUTICASONE 250 MCG-SALMETEROL 50 MC* 1 In* 5 03/22/2017 Route: INHALATION Sig: Inhale 1 Puff as instructed twice daily. Rinse and gargle mouth after use with water. Medications Discontinued During This Encounter fexofenadine (JOSE ALLERGY) 180 m* 03/22/2017 Class: Historical Med Route: ORAL Sig: Take 180 mg by mouth once daily. Generic otc prn Disc: Reason for discontinue is not on file. albuterol HFA (PROVENTIL HFA, VENTOL* 1 In* 2 04/27/2014 03/22/2017 Route: INHALATION Sig: Inhale 2 Puffs as instructed every 6 hours as needed for Wheezing/Shortness of Breath. Disc: Reason for discontinue is not on file. Disposition: Return in about 6 months (around 09/19/2017). Follow-up and Disposition History Recorded Encounter Status:Closed by MARLA NAJERA MD on 03/22/17 ALLERGIES ALLERGIES DATE TYPE / CODE NAME / CODE REACTION SEVERITY SOURCE 02/12/2018 Drug aspirin/[id number] Unknown Unknown [place] Allergy/416 (RXNORM) [facility] [id number]([facility] ED CT) Repository 02/12/2018 Drug cefaclor/[id number] Hives Unknown [place] [facility]/416 6(RXNORM) [facility] 921642([facility] ED CT) Repository 02/12/2018 Drug amoxicillin/[id number] Swelling Unknown [place] Allergy/416 3675(RXNORM) [facility] 897851([facility] ED CT) Repository 2016 DRUG AMOXICILLIN SWELLING [facility] INGREDI/[address] [place] 402181([facility] Repository ED CT) 04/27/2014 DRUG ASPIRIN OTHER: SEE C [facility] INGREDI/[address] [place] 694885([facility] Repository ED CT) 04/27/2014 DRUG CEFACLOR HIVES [facility] INGREDI/[address] [place] 526939([facility] Repository ED CT) ENCOUNTERS ENCOUNTERS ADMIT/DISCHARGE ACCOUNT ADMITTING ENCOUNTER LOCATION SOURCE NUMBER CLASS 02/14/2018/02/16/20 [id number] Ambulatory [address] [place] Repository 02/12/2018/02/13/20 [id number] Emergency [address] ing:ED Repository 01/24/2018/01/29/20 [id number] Ambulatory [address] [place] Repository 01/18/2018/01/19/20 [id number] Ambulatory [address] Repository 01/18/2018 [id number] Ambulatory [facility] ing:[facility] Repository 01/18/2018/01/22/20 [id number] Ambulatory [address] [place] Repository 01/05/2018/01/06/20 [id number] Ambulatory [address] [place] Repository 01/01/2018/01/03/20 [id number] Ambulatory [address] [place] Repository 10/17/2017/10/18/19 [id number] Ambulatory [address] Other [place] Repository 09/29/2017/09/30/19 [id number] Ambulatory [address] [place] Repository 09/25/2017/09/27/19 [id number] Ambulatory [address] [place] Repository 06/28/2017/06/29/19 [id number] Ambulatory [address] [place] Repository 06/28/2017/06/30/19 [id number] Ambulatory [address] [place] Repository 05/31/2017/06/01/19 [id number] Ambulatory [facility]:[address] [place] [address] [facility] Repository 04/25/2017/04/25/19 [id number] Ambulatory [facility]:[address] [place] [address] [facility] Repository 03/22/2017/03/22/19 [id number] Ambulatory [address] [place] Repository 03/22/2017 [id number] Ambulatory [facility] [place] Repository 03/22/2017/03/27/19 [id number] Ambulatory [address] Repository PAYERS PAYERS ENCOUNTER GUARANTOR PAYER SUBSCRIBER SOURCE 02/12/2018 GUERA Pop Primary GUERA ELIAS S [facility] MOATSD[facility]: [facility] [address]swvp [id number]: Repository [id number]: 330 [id number] [phone] (HP) Date:[id number] [address], [place] [address]YX: 02/12/2018 Secondary NOT GIVENUNK [place] Insurance:SELF PAY [facility] Number: Effective Repository Date:2018-02-12 01/18/2018 GUERA Pop Primary NOT GIVENUNK [place] [id number] Insurance:SELF PAY [place], [place] Number: Effective Repository [id number]: 330) Date:2018-01-18 [phone] (HP) 05/31/2017 UGERA ELIAS Primary GUERA FRAGOSODOB: [place] Insurance[id number] [address]Yih: PLANPolicy Number: Repository [phone] [id number] (HP) Date:0468-38-28IA [address] [address]DU: 05/31/2017 Secondary NOT GIVENUNK [place] Insurance:SELF PAY [facility] Number: Effective Repository Date:2017-05-31 04/25/2017 GUERA ELIAS Primary NOT GIVENUNK [place] Insurance:SELF PAY [facility] [id number]: Number: Effective Repository [phone] Date:2017-04-25 (HP)
== END 2018-02-12 13:56 | disposition home or self-care (01) ==
PROVIDERS: Emergency Provider Emergency Medicine; Family Provider Family Medicine; PCP Family Medicine
DX: S16.1XXA Strain of muscle, fascia and tendon at neck level, initial encounter (principal); V89.2XXA Person injured in unspecified motor-vehicle accident, traffic, initial encounter; Y93.89 Activity, other specified; Y92.410 Unspecified street and highway as the place of occurrence of the external cause; J45.909 Unspecified asthma, uncomplicated; D11.9 Benign neoplasm of major salivary gland, unspecified; Z79.84 Long term (current) use of oral hypoglycemic drugs; Z79.899 Other long term (current) drug therapy
CPT/HCPCS: 72040; 99282

== ENCOUNTER → 2020-04-02 22:24 | Outpatient (CLI) | payer OTHER, SELFPAY | PROVIDERS: PCP Family Medicine; Visit Provider Psychiatry & Neurology Sleep Medicine | DX: G47.33 Obstructive sleep apnea (adult) (pediatric) (principal); E66.01 Morbid (severe) obesity due to excess calories; Z68.42 Body mass index [BMI] 45.0-49.9, adult | CPT/HCPCS: 95811 ==